=== PATIENT | female | born 1950 | race Caucasian/White ===

== ENCOUNTER 2017-11-07 06:24 | Day surgery (SDC) | payer MEDICARE ==
[2017-11-06 13:46] VITALS: BMI 31.8
[2017-11-07] MEDS ORDERED: Lactated Ringer's 1,000 ML IV ONE ×2 (07:56)
--- NOTE | 2017-11-07 08:03 | CP.SDSHP ---
Same Day Surgery H & P - History Proposed Procedure: COLONSCOPY Pre-Op Diagnosis: SEE NOTES - Previous Medical/Surgical History Cardiac: Hypertension Pulmonary: Asthma Endocrine/Metabolic: Thyroid Disease, Diabetes, Other Misc: Other - Allergies Allergies: Allergies cefazolin Allergy (Mild, Verified 11/06/17 13:47) ITCHING ibuprofen Allergy (Mild, Verified 11/06/17 13:47) ITCHING pineapple Allergy (Mild, Verified 11/06/17 13:47) URTICARIA zolpidem [From Ambien] Allergy (Verified 11/07/17 07:03) DIZZINESS 'RELAXER MEDS" Allergy (Uncoded 11/07/17 07:03) ITCHING - Physical Exam General Appearance: N Vital Signs: Vital Signs 11/07/17 06:50 Temperature 97.6 F Pulse Rate 80 Respiratory 20 Rate Blood Pressure 131/79 O2 Sat by Pulse 97 Oximetry Mental Status: Alert & Oriented x3 Neuro: WNL Heart: Other Lungs: Other GI: Other - {Optional Preform as Required} Breast: WNL Abdomen: Other Rectal: Other Integument: WNL : WNL Ortho: Other ENT: WNL - Impression Pt. Evaluated Today:Candidate for Anesthesia & Procedure: Yes - Date & Time Time: 08:02 Short Stay Discharge - Short Stay Discharge Admitting Diagnosis/Reason for Visit: RECTAL BLEEDING Disposition: HOME/ ROUTINE
[2017-11-07] MEDS ORDERED: Propofol 10 mg/ml Inj (20 ML) ONE (08:05)
[2017-11-07] MEDS ORDERED: Belladonna-Phenobarbital PO ONE (08:40)
[2017-11-07] MEDS ORDERED: Pantoprazole 40 mg EC Tab PO ONE (08:50)
[2017-11-07 09:26] VITALS: TEMP 97.1; O2SAT 100
[2017-11-07 10:24] VITALS: BP 112/68; PULSE 92; RESP 14
== END 2017-11-07 09:45 | disposition home or self-care (01) ==
LOC: C.ENDO 06:24
PROVIDERS: ATTEND Specialist
DX: K62.5 Hemorrhage of anus and rectum (principal); R19.4 Change in bowel habit; R10.84 Generalized abdominal pain; K64.4 Residual hemorrhoidal skin tags; K64.8 Other hemorrhoids; K58.9 Irritable bowel syndrome, unspecified; E11.9 Type 2 diabetes mellitus without complications; I10 Essential (primary) hypertension; J45.909 Unspecified asthma, uncomplicated
CPT/HCPCS: 45380; 82948; 88305; J2704; J7120

== ENCOUNTER 2018-08-09 16:46 | Inpatient (IN) | payer MEDICARE ==
[2018-08-09 16:46] VITALS: BMI 31.8
[2018-08-09] MEDS ORDERED: Albuterol-Ipratrop 3 mg / 0.5 (3 ml) UD ONE ×2 (17:01→17:46)
[2018-08-09] MEDS ORDERED: Albuterol-Ipratrop 3 mg / 0.5 (3 ml) UD INH STA ×2 (17:02→18:05)
--- NOTE | 2018-08-09 18:10 | C.PDOC ---
History Of Present Illness 68 year old female with PMHx of asthma presents to the ED complaining of shortness of breath for 3 days that got worse today. Pt notes her SOB feels like her previous asthma exacerbations. No previous intubations for asthma per pt. Pt was sent in by PMD for further eval of SOB. Reports she had a fever of 99.3 three days ago. Denies any chest pain, leg edema, chills, sweats, nausea, vomiting, lightheadedness or any other complaints. Chief Complaint (Nursing): Shortness Of Breath History Per: Patient History/Exam Limitations: no limitations Onset/Duration Of Symptoms: Days (3) Current Symptoms Are (Timing): Still Present Associated Symptoms: Fever. denies: Chills, Sweating, Chest Pain, Light- headedness Past Medical History Reviewed: Historical Data, Nursing Documentation, Vital Signs Vital Signs: Last Vital Signs Temp 99 F 08/09/18 16:50 Pulse 112 H 08/09/18 16:50 Resp 24 08/09/18 16:50 BP 117/79 08/09/18 16:50 Pulse Ox 97 08/09/18 16:50 - Medical History PMH: Asthma, Diabetes, Hypercholesterolemia, Hypothyroidism Denies: Chronic Kidney Disease Surgical History: Appendectomy, Cholecystectomy - [facility] Procedures LARYGNOSCOPY AND OTH TRACHEOSCOPY (07/07/13) VENOUS CATHETERIZATION NEC (07/07/13) Family History: States: No Known Family Hx - Social History Hx Tobacco Use: No Hx Alcohol Use: No Hx Substance Use: No - Immunization History Hx Tetanus Toxoid Vaccination: No Hx Influenza Vaccination: Yes (2017) Hx Pneumococcal Vaccination: No Review Of Systems Constitutional: Positive for: Fever. Negative for: Chills, Sweats Eyes: Negative for: Pain ENT: Negative for: Ear Pain, Mouth Swelling Cardiovascular: Negative for: Chest Pain, Light Headedness Respiratory: Positive for: Shortness of Breath Gastrointestinal: Negative for: Nausea, Vomiting, Abdominal Pain, Diarrhea, C onstipation, Melena, Hematochezia Genitourinary: Negative for: Dysuria, Frequency, Hematuria, Pelvic Pain, Rash Musculoskeletal: Negative for: Neck Pain Skin: Negative for: Rash Neurological: Negative for: Weakness, Numbness Physical Exam - Physical Exam Appears: Non-toxic Skin: Warm, Dry Head: Normacephalic Eye(s): bilateral: Normal Inspection, PERRL, EOMI Nose: Normal Oral Mucosa: Moist Neck: Supple Chest: Symmetrical Cardiovascular: Rhythm Regular Respiratory: No Rales, No Rhonchi, Wheezing (b/l) Gastrointestinal/Abdominal: Normal Exam, Soft, No Tenderness Back: Normal Inspection, No CVA Tenderness Extremity: Normal ROM, No Pedal Edema, No Swelling Extremity: Bilateral: Atraumatic, Normal Color And Temperature, Normal ROM Neurological/Psych: Oriented x3, Normal Speech, Normal Cognition ED Course And Treatment - Laboratory Results Result Diagrams: 08/09/18 18:56 08/09/18 18:56 O2 Sat by Pulse Oximetry: 97 (NC) Pulse Ox Interpretation: Normal Critical Care Time - Critical Care Note Total Time (in mins): 30 Documented critical care: time excludes all time spent performing seperately billable procedures. Medical Decision Making Medical Decision Makin68 year old F w/ hx of asthma p/w sob. Multiple admission but no previous admissions for asthma. No fever, chills or night sweats. Dry cough. Sent in by PMD for further evaluation of SOB. Duonebs given, will continue w/ Mg and additional Nebs. Orders: - CXR - Bloodwork - Influenze AB - Nebulizer treatment - Solumedrol 125mg IVP 1918 Pt noted to be speaking in 2 word sentences, with diffuse wheezes and tremulous. She denies any hx of ETOH withdrawal or daily ETOH use. Placed on BIPAP with improvement. ICU consulted appreciate consultation w/ Dr. Reyes (ICU) to see pt [address] Reyes: ?withdrawal per ICU. Reccomending CT PE study, expanded history per ICU: pt has hx of CA, previously on eliquis and opiates. UDS requested by ICU 2317 CT PE negative abg- nonhypercapnic. seen by ICU bedside: likely withdrawal per icu given ABG and clinical hx of CA previously on opiates, no indication for ICU admission at this time Wheezes resolved. lungs CTA b/l. Pt improved in NAD, off bipap, tolerting nebs well with good o2 sat, agreeable to plan. Disposition - Disposition Disposition: HOSPITALIZED Disposition Time: 23:18 Condition: FAIR - Clinical Impression Clinical Impression: Asthma - Scribe Statement The provider has reviewed the documentation as recorded by the Scribjaun Dee All medical record entries made by the Scribe were at my direction and personally dictated by me. I have reviewed the chart and agree that the record accurately reflects my personal performance of the history, physical exam, medical decision making, and the department course for this patient. I have also personally directed, reviewed, and agree with the discharge instructions and disposition.
[2018-08-09] MEDS ORDERED: MethylPREDNISolone 40 mg Vial IVP STA (18:15)
[2018-08-09] MEDS ORDERED: Albuterol 0.083% Inhal Sol (2.5 mg/3 mL) UD INH ONE (18:17)
[2018-08-09] MEDS ORDERED: Albuterol 0.083% Inhal Sol (2.5 mg/3 mL) UD ONE (18:18)
[2018-08-09] MEDS ORDERED: Magnesium Sulfate 1 gm in D5W 1 GM/100 ML BAG IVPB ONE ×2 (18:18→18:29)
[2018-08-09 18:59] LABS: BASO # 0.1 K/uL (0.0-0.2); BASO % 0.7 % (0.0-2.0); EOS # 0.3 K/uL (0.0-0.7); EOS % 2.5 % (0.0-4.0); HEMOGLOBIN 12.2 g/dL (11.0-16.0); LYMPH % 33.6 % (20.0-40.0); MEAN CELL VOLUME 92.2 fL (81.0-99.0); MEAN CORPUSCULAR HEMOGLOBIN 31.2 pg (27.0-31.0); MEAN CORPUSCULAR HGB CONC 33.8 g/dL (33.0-37.0); MEAN PLATELET VOLUME 10.4 fL (7.2-11.7); MONO # 0.8 K/uL (0.0-0.8); MONO % 6.7 % (0.0-10.0); NEUT # 6.7 K/uL (1.8-7.0); NEUT % 56.5 % (50.0-75.0); NRBC % 0.1 % (0.0-2.0); RBC 3.92 Mil/uL (3.80-5.20); RED CELL DISTRIBUTION WIDTH 14.3 % (11.5-14.5); WHITE BLOOD COUNT 11.9 K/uL (4.8-10.8)
[2018-08-09 19:10] LABS: ABG ALLEN TEST POS; ARTERIAL BLOOD GAS HCO3 26.9 mmol/L (21-28); ARTERIAL BLOOD GAS O2 SAT 97.7 % (95-98); ARTERIAL BLOOD GAS PCO2 22 mm/Hg (35-45); ARTERIAL BLOOD GAS PH 7.61 (7.35-7.45); ARTERIAL BLOOD GAS PO2 125 mm/Hg (80-100); ARTERIAL BLOOD GAS TCO2 22.8 mmol/L (22-28)
[2018-08-09 19:11] LABS: BLOOD UREA NITROGEN 16 mg/dL (7-17); CALCIUM 9.8 mg/dl (8.6-10.4); GFR NON-AFRICAN AMERICAN > 60
[2018-08-09 19:12] LABS: ALB/GLOB RATIO 1.1 (1.0-2.1); ALBUMIN 4.7 g/dL (3.5-5.0); ALT/SGPT 35 U/L (9-52); AST/SGOT 52 U/L (14-36)
[2018-08-09] MEDS ORDERED: Lactated Ringer's 1,000 ML IV ONE (19:35)
[2018-08-09 20:15] LABS: BARBITURATES, UR NEGATIVE (NEGATIVE); BENZODIAZEPINES, UR NEGATIVE (NEGATIVE); OPIATES, UR NEGATIVE (NEGATIVE); PHENCYCLIDINE, UR NEGATIVE (NEGATIVE)
[2018-08-09] MEDS: MethylPREDNISolone 40 mg Vial IVP SCH (20:19)
[2018-08-09] MEDS ORDERED: Lactated Ringer's 1,000 ML ONE (20:21)
[2018-08-09] MEDS ORDERED: MethylPREDNISolone 40 mg Vial ONE (20:21)
[2018-08-09] MEDS ORDERED: Azithromycin 500mg/250ML NS 500 MG/250 ML BAG IVPB STA (20:45)
[2018-08-09] MEDS ORDERED: Azithromycin 500mg/250ML NS 500 MG/250 ML BAG IVPB ONE (21:56)
[2018-08-09] MEDS ORDERED: Iohexol 350mg/ml 100 ML ONE (22:27)
[2018-08-10] MEDS ORDERED: Lidocaine 5% Patch TD PRN (00:19)
[2018-08-10] MEDS ORDERED: Dextrose 50% SYRINGE Inj (50 ml) IV PRN (00:26)
[2018-08-10] MEDS ORDERED: Glucagon Recombinant 1 mg Inj IM PRN (00:26)
[2018-08-10] MEDS ORDERED: Insulin Detemir 100 units/ml Vial (Levemir) SC ONE (00:42)
[2018-08-10] MEDS: Insulin Detemir 100 units/ml Vial (Levemir) SC SCH ×2 (00:44→21:30)
[2018-08-10] MEDS: Albuterol-Ipratrop 3 mg / 0.5 (3 ml) UD INH SCH ×4 (01:26→20:21)
[2018-08-10] MEDS ORDERED: Albuterol-Ipratrop 3 mg / 0.5 (3 ml) UD ONE ×3 (01:33→14:57)
[2018-08-10] MEDS: MethylPREDNISolone 40 mg Vial IVP SCH ×3 (04:18→19:32)
[2018-08-10] MEDS ORDERED: MethylPREDNISolone 40 mg Vial ONE (04:18)
[2018-08-10 07:43] LABS: INR 1.2
[2018-08-10] MEDS: (Novolog) Insulin Aspart, Recombinant 100 u/ml 10 ml vial SC SCH ×4 (08:09→21:30)
[2018-08-10] MEDS ORDERED: (Novolog) Insulin Aspart, Recombinant 100 u/ml 10 ml vial ONE ×2 (08:11→12:18)
[2018-08-10] MEDS: Fluticasone-Vilanterol 100/25mcg Diskus INH SCH (09:32)
[2018-08-10] MEDS ORDERED: MAGNESIUM AMINO ACID CHELATE PO SCH (10:00)
[2018-08-10] MEDS ORDERED: Levothyroxine 100 MCG TAB PO SCH (10:00)
[2018-08-10] MEDS ORDERED: CYANOCOBALAMIN 2500 MCG PO SCH (10:00)
[2018-08-10] MEDS ORDERED: FENOFIBRATE 40 MG PO SCH (10:00)
[2018-08-10] MEDS ORDERED: Home Med 1 UNIT (Cholecalciferol (Vitamin D3) [Vitamin D3] 2,000 UNIT) PO SCH (10:00)
[2018-08-10] MEDS ORDERED: ACIDOPH PARACASEI B LACTIS PO SCH (10:00)
[2018-08-10] MEDS ORDERED: [UNRECOGNIZED DRUG - OTHER] PO SCH (10:00)
[2018-08-10] MEDS: Enoxaparin 40 mg Syringe SC SCH (10:03)
[2018-08-10] MEDS: Azithromycin 500 MG in Sodium Chloride 0.9% 250 ML IVPB SCH (10:04)
--- NOTE | 2018-08-10 13:03 | CP.PCM.CON ---
History of Present Illness - History of Present Illness History of Present Illness: I was asked to evaluate patient by Dr Esequiel Reyes Patient seen 08/10/18 1100 Patient is a 68 year old female with HTN hyperchoelsterolemia DM, who presents with dyspnea. The symptoms have been present for the last 3 days. She had associated cough. Given DM there was a concern for a cardiac cause of her symptoms. Review of Systems - Constitutional Constitutional: absent: As Per HPI, Anorexia, Chills, Daytime Sleepiness, Excessive Sweating, Fatigue, Fever, Frequent Falls, Headache, Increased Appetite, Lethargy, Malaise, Night Sweats, Snoring, Sleep Apnea, Weight Gain, Weight Loss, Weakness, Other - EENT Eyes: absent: As Per HPI, Blind Spots, Blurred Vision, Change in Vision, Decreased Night Vision, Diplopia, Discharge, Dry Eye, Exophthalmos, Floaters, Irritation, Itchy Eyes, Loss of Peripheral Vision, Pain, Photophobia, Requires Corrective Lenses, Sees Flashes, Spots in Vision, Tunnel Vision, Other Visual Disturbances, Loss of Vision, Other Ears: absent: As Per HPI, Decreased Hearing, Ear Discharge, Ear Pain, Tinnitus, Abnormal Hearing, Disequilibrium, Dizziness, Other Nose/Mouth/Throat: absent: As Per HPI, Epistaxis, Nasal Congestion, Nasal Discharge, Nasal Obstruction, Nasal Trauma, Nose Pain, Post Nasal Drip, Sinus Pain, Sinus Pressure, Bleeding Gums, Change in Voice, Dental Pain, Dry Mouth, Dysphagia, Halitosis, Hoarsness, Lip Swelling, Mouth Lesions, Mouth Pain, Odynophagia, Sore Throat, Throat Swelling, Tongue Swelling, Facial Pain, Neck Pain, Neck Mass, Other - Cardiovascular Cardiovascular: absent: As Per HPI, Acrocyanosis, Chest Pain, Chest Pain at Rest, Chest Pain with Activity, Claudication, Diaphoresis, Dyspnea, Dyspnea on Exertion, Edema, Irregular Heart Rhythm, Pain Radiating to Arm/Neck/Jaw, Leg Jeramie ma, Leg Ulcers, Lightheadedness, Orthopnea, Palpitations, Paroxysmal Nocturnal Dyspnea, Pedal Edema, Radiating Pain, Rapid Heart Rate, Slow Heart Rate, Syncope, Other - Respiratory Respiratory: Cough, Dyspnea - Gastrointestinal Gastrointestinal: absent: As Per HPI, Abdominal Pain, Belching, Bloating, Change in Bowel Habits, Change in Stool Character, Coffee Ground Emesis, Constipation, Cramping, Diarrhea, Dyspepsia, Dysphagia, Early Satiety, Excessive Flatus, Fecal Incontinence, Heartburn, Hematemesis, Hematochezia, Loose Stools, Melena, Nausea, Odynophagia, Temesmus, Vomiting, Other - Genitourinary Genitourinary: absent: As Per HPI, Change in Urinary Stream, Difficulty Urin ating, Dysuria, Flank Pain, Hematuria, Pyuria, Nocturia, Urinary Incontinence, Urinary Frequency, Urinary Hesitance, Urinary Urgency, Voiding Freq/Small Amts, Freq UTI, Hx Renal/Bladder Calculi, Hx /Renal Surgery, Bladder Distension, Other - Musculoskeletal Musculoskeletal: absent: As Per HPI, Abnormal Gait, Arthralgias, Atrophy, Back Pain, Deformity, Joint Swelling, Limited Range of Motion, Loss of Height, Muscle Cramps, Muscle Weakness, Myalgias, Neck Pain, Numbness, Radiating Pain into Limb, Stiffness, Tingling, Other - Integumentary Integumentary: absent: As Per HPI, Acne, Alopecia, Bleeding Lesions, Change in Hair, Change in Nails, Change in Pigmentation, Changing Lesions, Dry Skin, Erythema, Furuncle, Hirsutism, Lesions, New Lesions, Non-Healing Lesions, Photosensitivity, Pruritus, Rash, Skin Pain, Skin Ulcer, Sores, Striae, Swelling, Unusual Bruising, Wounds, Jaundice, Other - Neurological Neurological: absent: As Per HPI, Abnormal Gait, Abnormal Hearing, Abnormal Movements, Abnormal Speech, Behavioral Changes, Burning Sensations, Confusion, Convulsions, Disequilibrium, Dizziness, Numbness, Focal Weakness, Frequent Falls, Headaches, Lack of Coordination, Loss of Vision, Memory Loss, Paresthesias, Radicular Pain, Restless Legs, Sensory Deficit, Syncope, Tingling, Tremor, Vertigo, Weakness, Other Visual Disturbances, Other - Psychiatric Psychiatric: absent: As Per HPI, Abnormal Sleep Pattern, Anhedonia, Anxiety, A uditory Hallucinations, Behavioral Changes, Change in Appetite, Change in Libido, Confusion, Depression, Difficulty Concentrating, Hallucinations, Homicidal Ideation, Hopelessness, Irritability, Memory Loss, Mood Swings, Panic Attacks, Paranoia, Suicidal Ideation, Visual Hallucinations, Tactile [place] ucinations, Other - Endocrine Endocrine: absent: As Per HPI, Change in Body Appearance, Change in Libido, Cold Intolorance, Deepening of Voice, Excessive Sweating, Fatigue, Flushing, Heat Intolorance, Increase in Ring/Shoe/Hat Size, Palpitations, Polydipsia, Po lyphagia, Polyuria, Other - Hematologic/Lymphatic Hematologic: absent: As Per HPI, Easy Bleeding, Easy Bruising, Lymphadenopathy, Other Past Patient History - Past Medical History & Family History Past Medical History?: Yes - Past Social History Smoking Status: Never Smoked - CARDIAC Hx Hypercholesterolemia: Yes - PULMONARY Hx Asthma: Yes - NEUROLOGICAL Hx Neurological Disorder: No - HEENT Hx HEENT Problems: No - RENAL Hx Chronic Kidney Disease: No - ENDOCRINE/METABOLIC Hx Hypothyroidism: Yes - HEMATOLOGICAL/ONCOLOGICAL Hx Blood Disorders: Yes Hx Cancer: Yes (BREAST, KIDNEY, THYROID) Hx Chemotherapy: Yes Hx Metastesis: Yes - INTEGUMENTARY Hx Dermatological Problems: No - MUSCULOSKELETAL/RHEUMATOLOGICAL Hx Musculoskeletal Disorders: No - GASTROINTESTINAL Hx Gastrointestinal Disorders: Yes Other/Comment: C/O ABDOMINAL PAIN - GENITOURINARY/GYNECOLOGICAL Hx Genitourinary Disorders: No - PSYCHIATRIC Hx Substance Use: No - SURGICAL HISTORY Hx Appendectomy: Yes Hx Cholecystectomy: Yes - ANESTHESIA Hx Anesthesia: Yes Hx Anesthesia Reactions: No Hx Malignant Hyperthermia: No Meds Allergies/Adverse Reactions: Allergies Allergy/AdvReac Type Severity Reaction Status Date / Time cefazolin Allergy Mild ITCHING Verified 08/09/18 16:54 ibuprofen Allergy Mild ITCHING Verified 08/09/18 16:54 pineapple Allergy Mild URTICARIA Verified 08/09/18 16:54 zolpidem [From Ambien] Allergy DIZZINESS Verified 08/09/18 16:54 'RELAXER MEDS" Allergy ITCHING Uncoded 08/09/18 16:54 - Medications Medications: Current Medications Albuterol/Ipratropium (Duoneb 3 Mg/0.5 Mg (3 Ml) Ud) 3 ml INH RQ6 [facility] Last Admin: 08/10/18 09:46 Dose: 3 ml Alprazolam (Xanax) 1 mg PO DAILY PRN PRN Reason: Anxiety Aspirin (Ecotrin) 81 mg PO DAILY [facility] Last Admin: 08/10/18 10:03 Dose: 81 mg Dextrose (Dextrose 50% Inj) 0 ml IV STAT PRN; Protocol PRN Reason: Hypoglycemia Protocol Dextrose (Glutose 15) 0 gm PO ONCE PRN; Protocol PRN Reason: Hypoglycemia Protocol Enoxaparin Sodium (Lovenox) 40 mg SC DAILY [facility] Last Admin: 08/10/18 10:03 Dose: 40 mg Fluticasone/Vilanterol (Breo Ellipta 100-25 Mcg Inh) 1 puff INH RQD [facility] Last Admin: 08/10/18 09:32 Dose: 1 puff Gabapentin (Neurontin) 800 mg PO TID PRN PRN Reason: to give with dilaudid Last Admin: 08/10/18 05:07 Dose: 800 mg Glucagon (Glucagen Diagnostic Kit) 0 mg IM STAT PRN; Protocol PRN Reason: Hypoglycemia Protocol Home Med (Cholecalciferol (Vitamin D3) [Vitamin D3]) 2,000 unit PO DAILY [facility] Home Med (Cyanocobalamin (Vitamin B-12) [Vitamin B12]) 2,500 mcg PO DAILY [facility] Home Med (Fenofibrate [Fenofibrate]) 40 mg PO DAILY [facility] Home Med (L.Acidoph,Paracasei, B.Lactis [Probiotic]) 1 each PO DAILY [facility] Home Med (Lobaza) 1 gr PO DAILY [facility] Home Med (Magnesium Amino Acid Chelate [Magnesium]) 27 mg PO DAILY [facility] Hydromorphone HCl (Dilaudid) 2 mg PO Q8 PRN PRN Reason: pain Last Admin: 08/10/18 05:07 Dose: 2 mg Azithromycin 500 mg/ Sodium (Chloride) 250 mls @ 250 mls/hr IVPB DAILY [facility]; Protocol Last Admin: 08/10/18 10:04 Dose: 250 mls/hr Dextrose (Dextrose 5% In Water 1000 Ml) 1,000 mls @ 0 mls/hr IV .Q0M PRN; Protocol PRN Reason: Hypoglycemia Protocol Insulin Aspart (Novolog) 0 unit SC ACHS [facility]; Protocol Last Admin: 08/10/18 12:11 Dose: 5 units Insulin Detemir (Levemir) 20 unit SC HS [facility] Last Admin: 08/10/18 00:44 Dose: 20 units Levothyroxine Sodium (Synthroid) 100 mcg PO DAILY [facility] Last Admin: 08/10/18 10:04 Dose: 100 mcg Lidocaine (Lidoderm) 1 ea TD DAILY PRN PRN Reason: pain Methylprednisolone (Solu-Medrol) 40 mg IVP Q8H [facility] Stop: 08/12/18 19:31 Last Admin: 08/10/18 12:18 Dose: 40 mg Montelukast Sodium (Singulair) 10 mg PO HS [facility] Last Admin: 08/09/18 21:54 Dose: 10 mg Pantoprazole Sodium (Protonix Ec Tab) 40 mg PO DAILY [facility] Repaglinide (Prandin) 1 mg PO TID [facility] Last Admin: 08/10/18 10:04 Dose: 1 mg Rosuvastatin Calcium (Crestor) 20 mg PO HS [facility] Sucralfate (Carafate Tab) 1 gm PO QID [facility] Last Admin: 08/10/18 10:03 Dose: 1 gm Physical Exam - Constitutional Appears: Non-toxic - Head Exam Head Exam: NORMAL INSPECTION - Eye Exam Eye Exam: Normal appearance - ENT Exam ENT Exam: Mucous Membranes Moist - Neck Exam Neck exam: Positive for: Full Rom - Respiratory Exam Respiratory Exam: NORMAL BREATHING PATTERN - Cardiovascular Exam Cardiovascular Exam: REGULAR RHYTHM - GI/Abdominal Exam GI & Abdominal Exam: Normal Bowel Sounds - Rectal Exam Rectal Exam: Deferred - Extremities Exam Extremities exam: Positive for: pedal edema - Back Exam Back exam: NORMAL INSPECTION - Neurological Exam Neurological exam: Alert, Oriented x3 - Psychiatric Exam Psychiatric exam: Normal Affect - Skin Skin Exam: Normal Color Results - Vital Signs Recent Vital Signs: Last Vital Signs Temp 98.3 F 08/10/18 08:58 Pulse 97 H 08/10/18 08:58 Resp 24 08/10/18 08:58 BP 123/62 08/10/18 08:58 Pulse Ox 96 08/10/18 08:58 - Labs Result Diagrams: 08/09/18 18:56 08/09/18 18:56 Labs: Laboratory Results - last 24 hr 08/09/18 08/09/18 08/09/18 18:18 18:56 18:56 WBC 11.9 H RBC 3.92 Hgb 12.2 Hct 36.2 MCV 92.2 MCH 31.2 H MCHC 33.8 RDW 14.3 Plt Count 227 MPV 10.4 Neut % (Auto) 56.5 Lymph % (Auto) 33.6 [place] % (Auto) 6.7 Eos % (Auto) 2.5 Baso % (Auto) 0.7 Neut # (Auto) 6.7 Lymph # (Auto) 4.0 [place] # (Auto) 0.8 Eos # (Auto) 0.3 Baso # (Auto) 0.1 PT INR APTT Puncture Site pCO2 pO2 HCO3 ABG pH ABG Total CO2 ABG O2 Saturation ABG Base Excess Buster Test ABG Potassium A-a O2 Difference Respiratory Index Glucose Lactate FiO2 Inspiratory BiPAP Expiratory BiPAP Crit Value Called To Crit Value Called By Crit Value Read Back Blood Gas Notified Time Sodium 140 Potassium 4.3 Chloride 99 Carbon Dioxide 22 Anion Gap 23 H BUN 16 Creatinine 0.7 Est GFR ( Amer) > 60 Est GFR (Non-Af Amer) > 60 POC Glucose (mg/dL) Random Glucose 155 H Calcium 9.8 Total Bilirubin 0.8 AST 52 H ALT 35 Alkaline Phosphatase 77 Troponin I NT-Pro-B Natriuret Pep Total Protein 8.9 H Albumin 4.7 Globulin 4.2 H Albumin/Globulin Ratio 1.1 Arterial Blood Potassium Urine Opiates Screen Urine Methadone Screen Ur Barbiturates Screen Ur Phencyclidine Scrn Ur Amphetamines Screen U Benzodiazepines Scrn U Oth Cocaine Metabols U Cannabinoids Screen Influenza Typ A,B (EIA) Negative for flu a/b 08/09/18 08/09/18 08/09/18 19:00 19:34 19:38 WBC RBC Hgb Hct MCV MCH MCHC RDW Plt Count MPV Neut % (Auto) Lymph % (Auto) [place] % (Auto) Eos % (Auto) Baso % (Auto) Neut # (Auto) Lymph # (Auto) [place] # (Auto) Eos # (Auto) Baso # (Auto) PT INR APTT Puncture Site Rra pCO2 22 L pO2 125 H HCO3 26.9 ABG pH 7.61 H* ABG Total CO2 22.8 ABG O2 Saturation 97.7 ABG Base Excess 2.4 Buster Test Pos ABG Potassium 2.8 L A-a O2 Difference 61.0 Respiratory Index 0.5 Glucose 217 H Lactate 3.6 H FiO2 30.0 Inspiratory BiPAP 10 Expiratory BiPAP 5 Crit Value Called To Dr armstrong Crit Value Called By [facility] Crit Value Read Back Y Blood Gas Notified Time 1908 Sodium 143.0 Potassium Chloride 107.0 Carbon Dioxide Anion Gap BUN Creatinine Est GFR ( Amer) Est GFR (Non-Af Amer) POC Glucose (mg/dL) Random Glucose Calcium Total Bilirubin AST ALT Alkaline Phosphatase Troponin I < 0.0120 NT-Pro-B Natriuret Pep 43.0 Total Protein Albumin Globulin Albumin/Globulin Ratio Arterial Blood Potassium 2.8 L Urine Opiates Screen Negative Urine Methadone Screen Negative Ur Barbiturates Screen Negative Ur Phencyclidine Scrn Negative Ur Amphetamines Screen Negative U Benzodiazepines Scrn Negative U Oth Cocaine Metabols Negative U Cannabinoids Screen Negative Influenza Typ A,B (EIA) 08/09/18 08/10/18 23:11 07:26 WBC RBC Hgb Hct MCV MCH MCHC RDW Plt Count MPV Neut % (Auto) Lymph % (Auto) [place] % (Auto) Eos % (Auto) Baso % (Auto) Neut # (Auto) Lymph # (Auto) [place] # (Auto) Eos # (Auto) Baso # (Auto) PT 13.0 H INR 1.2 APTT 26 Puncture Site pCO2 pO2 HCO3 ABG pH ABG Total CO2 ABG O2 Saturation ABG Base Excess Buster Test ABG Potassium A-a O2 Difference Respiratory Index Glucose Lactate FiO2 Inspiratory BiPAP Expiratory BiPAP Crit Value Called To Crit Value Called By Crit Value Read Back Blood Gas Notified Time Sodium Potassium Chloride Carbon Dioxide Anion Gap BUN Creatinine Est GFR ( Amer) Est GFR (Non-Af Amer) POC Glucose (mg/dL) 361 H Random Glucose Calcium Total Bilirubin AST ALT Alkaline Phosphatase Troponin I NT-Pro-B Natriuret Pep Total Protein Albumin Globulin Albumin/Globulin Ratio Arterial Blood Potassium Urine Opiates Screen Urine Methadone Screen Ur Barbiturates Screen Ur Phencyclidine Scrn Ur Amphetamines Screen U Benzodiazepines Scrn U Oth Cocaine Metabols U Cannabinoids Screen Influenza Typ A,B (EIA) - EKG Data EKG Interpreted by: Myself EKG shows normal: Sinus rhythm Assessment & Plan (1) Dyspnea Assessment and Plan: symptoms suggestive of asthma. however patient has DM which is risk factor for CAD. medical therapy. will check echocardiogram Status: Acute (2) Diabetes Assessment and Plan: blood sugar control Status: Acute (3) HTN (hypertension) Assessment and Plan: blood pressure is controlled. Status: Acute
--- NOTE | 2018-08-10 14:24 | CT ---
Date of service: 08/09/2018 PROCEDURE: CT Chest with contrast (Pulmonary Angiogram) HISTORY: hx of ca p/w sob COMPARISON: 07/07/2013 TECHNIQUE: Axial computed tomography images were obtained of the chest in the pulmonary arterial phase of enhancement. Coronal and sagittal reformatted images were created and reviewed. Intravenous contrast dose: 100 mL Omnipaque 350 Radiation dose: Total exam DLP = 453.9 mGy-cm. This CT exam was performed using one or more of the following dose reduction techniques: Automated exposure control, adjustment of the mA and/or kV according to patient size, and/or use of iterative reconstruction technique. FINDINGS: PULMONARY ARTERIES: Evaluation technically limited due to timing of scan relative to contrast bolus. Suboptimal evaluation of subsegmental pulmonary artery branches. No evidence of pulmonary embolism in the main, lobar and segmental branches. AORTA: No acute findings. No thoracic aortic aneurysm. No aortic atherosclerotic calcification or mural plaque present. LUNGS: Bilateral lower lobe linear scar/atelectasis. No pulmonary infiltrate. PLEURAL SPACES: Unremarkable. No effusion or pneumothorax. HEART: Unremarkable. No cardiomegaly. No significant pericardial effusion. LYMPH NODES: No lymphadenopathy. BONES, CHEST WALL: Right breast augmentation prosthesis. Left mastectomy. Surgical clips in left axilla. No osseous fracture. OTHER FINDINGS: Unremarkable. IMPRESSION: No evidence of pulmonary embolism. Limited evaluation as above. No pulmonary infiltrate. Left mastectomy. Right breast augmentation prosthesis. The preliminary findings for this examination were reported by [facility] at 11:05 p.m. on 08/09/2018.. There is concurrence of this report with the preliminary findings.
[2018-08-10] MEDS ORDERED: Pantoprazole 40 mg EC Tab PO ONE (14:57)
[2018-08-10] MEDS: Pantoprazole 40 mg EC Tab PO SCH (15:02)
--- NOTE | 2018-08-10 16:15 | RAD ---
Date of service: 08/09/2018 HISTORY: SOB COMPARISON: Comparison made with chest radiograph 09/24/2013. This study was also read in conjunction with subsequent CTA of the chest 08/09/2018 at 22:27 hours. FINDINGS: LUNGS: Mild right basilar atelectasis. Note however that a portion of the right lateral lower hemithorax is obscured by in situ right-sided breast prosthesis.. Minimal left basilar atelectasis or scarring. PLEURA: No significant pleural effusion identified, no pneumothorax apparent. CARDIOVASCULAR: No obvious aortic atherosclerotic calcification present. Heart is mildly enlarged.. No pulmonary vascular congestion. OSSEOUS STRUCTURES: No significant abnormalities. VISUALIZED UPPER ABDOMEN: Normal. OTHER FINDINGS: Metallic clips left axilla and left mastectomy changes again noted. IMPRESSION: Mild right basilar atelectasis. Note however that a portion of the right lateral lower hemithorax is obscured by in situ right-sided breast prosthesis.. Minimal left basilar atelectasis or scarring. See above discussion for additional details and findings.
--- NOTE | 2018-08-10 17:41 | CP.PCM.HP ---
Present on Admission - Present on Admission Any Indicators Present on Admission: No Past Patient History - Past Medical History & Family History Past Medical History?: Yes - Past Social History Smoking Status: Former Smoker - CARDIAC Hx Cardiac Disorders: Yes Hx Hypercholesterolemia: Yes - PULMONARY Hx Respiratory Disorders: Yes Hx Asthma: Yes - NEUROLOGICAL Hx Neurological Disorder: No - HEENT Hx HEENT Problems: No - RENAL Hx Chronic Kidney Disease: No - ENDOCRINE/METABOLIC Hx Endocrine Disorders: Yes Hx Hypothyroidism: Yes - HEMATOLOGICAL/ONCOLOGICAL Hx Blood Disorders: Yes Hx Cancer: Yes (BREAST, KIDNEY, THYROID) Hx Chemotherapy: Yes Hx Metastesis: Yes - INTEGUMENTARY Hx Dermatological Problems: No - MUSCULOSKELETAL/RHEUMATOLOGICAL Hx Musculoskeletal Disorders: No Hx Falls: No - GASTROINTESTINAL Hx Gastrointestinal Disorders: Yes Other/Comment: C/O ABDOMINAL PAIN - GENITOURINARY/GYNECOLOGICAL Hx Genitourinary Disorders: No - PSYCHIATRIC Hx Bipolar Disorder: No Hx Substance Use: No - SURGICAL HISTORY Hx Surgeries: Yes Hx Appendectomy: Yes Hx Cholecystectomy: Yes - ANESTHESIA Hx Anesthesia: Yes Hx Anesthesia Reactions: No Hx Malignant Hyperthermia: No Meds Allergies/Adverse Reactions: Allergies Allergy/AdvReac Type Severity Reaction Status Date / Time cefazolin Allergy Mild ITCHING Verified 08/09/18 16:54 ibuprofen Allergy Mild ITCHING Verified 08/09/18 16:54 pineapple Allergy Mild URTICARIA Verified 08/09/18 16:54 zolpidem [From Ambien] Allergy DIZZINESS Verified 08/09/18 16:54 'RELAXER MEDS" Allergy ITCHING Uncoded 08/09/18 16:54 Physical Exam - Constitutional Appears: Well - Head Exam Head Exam: ATRAUMATIC, NORMAL INSPECTION, NORMOCEPHALIC - Eye Exam Eye Exam: EOMI, Normal appearance, PERRL Pupil Exam: NORMAL ACCOMODATION, PERRL - ENT Exam ENT Exam: Mucous Membranes Moist, Normal Exam - Neck Exam Neck exam: Positive for: Normal Inspection - Respiratory Exam Respiratory Exam: Decreased Breath Sounds - Cardiovascular Exam Cardiovascular Exam: REGULAR RHYTHM, +S1, +S2 - GI/Abdominal Exam GI & Abdominal Exam: Diminished Bowel Sounds, Soft - Rectal Exam Rectal Exam: Deferred Results - Vital Signs Recent Vital Signs: Last Vital Signs Temp 98.2 F 08/10/18 17:23 Pulse 90 08/10/18 17:23 Resp 20 08/10/18 17:23 BP 120/78 08/10/18 17:23 Pulse Ox 96 08/10/18 17:23 - Labs Result Diagrams: 08/14/18 06:44 08/14/18 06:44 Labs: Laboratory Results - last 24 hr 08/09/18 08/09/18 08/09/18 18:18 18:56 18:56 WBC 11.9 H RBC 3.92 Hgb 12.2 Hct 36.2 MCV 92.2 MCH 31.2 H MCHC 33.8 RDW 14.3 Plt Count 227 MPV 10.4 Neut % (Auto) 56.5 Lymph % (Auto) 33.6 [place] % (Auto) 6.7 Eos % (Auto) 2.5 Baso % (Auto) 0.7 Neut # (Auto) 6.7 Lymph # (Auto) 4.0 [place] # (Auto) 0.8 Eos # (Auto) 0.3 Baso # (Auto) 0.1 PT INR APTT Puncture Site pCO2 pO2 HCO3 ABG pH ABG Total CO2 ABG O2 Saturation ABG Base Excess Buster Test ABG Potassium A-a O2 Difference Respiratory Index Glucose Lactate FiO2 Inspiratory BiPAP Expiratory BiPAP Crit Value Called To Crit Value Called By Crit Value Read Back Blood Gas Notified Time Sodium 140 Potassium 4.3 Chloride 99 Carbon Dioxide 22 Anion Gap 23 H BUN 16 Creatinine 0.7 Est GFR ( Amer) > 60 Est GFR (Non-Af Amer) > 60 POC Glucose (mg/dL) Random Glucose 155 H Calcium 9.8 Total Bilirubin 0.8 AST 52 H ALT 35 Alkaline Phosphatase 77 Troponin I NT-Pro-B Natriuret Pep Total Protein 8.9 H Albumin 4.7 Globulin 4.2 H Albumin/Globulin Ratio 1.1 Procalcitonin Arterial Blood Potassium Urine Opiates Screen Urine Methadone Screen Ur Barbiturates Screen Ur Phencyclidine Scrn Ur Amphetamines Screen U Benzodiazepines Scrn U Oth Cocaine Metabols U Cannabinoids Screen Influenza Typ A,B (EIA) Negative for flu a/b 08/09/18 08/09/18 08/09/18 19:00 19:34 19:38 WBC RBC Hgb Hct MCV MCH MCHC RDW Plt Count MPV Neut % (Auto) Lymph % (Auto) [place] % (Auto) Eos % (Auto) Baso % (Auto) Neut # (Auto) Lymph # (Auto) [place] # (Auto) Eos # (Auto) Baso # (Auto) PT INR APTT Puncture Site Rra pCO2 22 L pO2 125 H HCO3 26.9 ABG pH 7.61 H* ABG Total CO2 22.8 ABG O2 Saturation 97.7 ABG Base Excess 2.4 Buster Test Pos ABG Potassium 2.8 L A-a O2 Difference 61.0 Respiratory Index 0.5 Glucose 217 H Lactate 3.6 H FiO2 30.0 Inspiratory BiPAP 10 Expiratory BiPAP 5 Crit Value Called To Dr armstrong Crit Value Called By [facility] Crit Value Read Back Y Blood Gas Notified Time 1908 Sodium 143.0 Potassium Chloride 107.0 Carbon Dioxide Anion Gap BUN Creatinine Est GFR ( Amer) Est GFR (Non-Af Amer) POC Glucose (mg/dL) Random Glucose Calcium Total Bilirubin AST ALT Alkaline Phosphatase Troponin I < 0.0120 NT-Pro-B Natriuret Pep 43.0 Total Protein Albumin Globulin Albumin/Globulin Ratio Procalcitonin Arterial Blood Potassium 2.8 L Urine Opiates Screen Negative Urine Methadone Screen Negative Ur Barbiturates Screen Negative Ur Phencyclidine Scrn Negative Ur Amphetamines Screen Negative U Benzodiazepines Scrn Negative U Oth Cocaine Metabols Negative U Cannabinoids Screen Negative Influenza Typ A,B (EIA) 08/09/18 08/09/18 08/10/18 22:12 23:11 07:26 WBC RBC Hgb Hct MCV MCH MCHC RDW Plt Count MPV Neut % (Auto) Lymph % (Auto) [place] % (Auto) Eos % (Auto) Baso % (Auto) Neut # (Auto) Lymph # (Auto) [place] # (Auto) Eos # (Auto) Baso # (Auto) PT 13.0 H INR 1.2 APTT 26 Puncture Site pCO2 pO2 HCO3 ABG pH ABG Total CO2 ABG O2 Saturation ABG Base Excess Buster Test ABG Potassium A-a O2 Difference Respiratory Index Glucose Lactate FiO2 Inspiratory BiPAP Expiratory BiPAP Crit Value Called To Crit Value Called By Crit Value Read Back Blood Gas Notified Time Sodium Potassium Chloride Carbon Dioxide Anion Gap BUN Creatinine Est GFR ( Amer) Est GFR (Non-Af Amer) POC Glucose (mg/dL) 361 H Random Glucose Calcium Total Bilirubin AST ALT Alkaline Phosphatase Troponin I NT-Pro-B Natriuret Pep Total Protein Albumin Globulin Albumin/Globulin Ratio Procalcitonin < 0.05 L Arterial Blood Potassium Urine Opiates Screen Urine Methadone Screen Ur Barbiturates Screen Ur Phencyclidine Scrn Ur Amphetamines Screen U Benzodiazepines Scrn U Oth Cocaine Metabols U Cannabinoids Screen Influenza Typ A,B (EIA) Assessment & Plan - Assessment and Plan (Free Text) Plan: Still having a lot of cough patient is on IV Avelox IV steroid DuoNeb Singulair Alprazolam Pain medication All medication as advised CBC CMP Follow-up with PMD
--- NOTE | 2018-08-10 19:05 | CP.PCM.CON ---
History of Present Illness - History of Present Illness History of Present Illness: CHART REVIEWED. PT SEEN AND EXAMINED. 68 YO HISP FEMALE WITH A HX COPD, HTN, DM, HYPERLIPIDEMIA, HYPOTH, +BREAST CA S/P CHEMO AND RT ?METS TO THYROID AND KIDNEY, ADM 08/09/18 WITH INCREASED MOD- SEVERE SOB AT REST X 3 DAYS, SEEN AT [facility] LAST WK AND RELEASED ON AB, COMPLETED COURSE, NO BETTER., NO RELIEF WITH HOME NEB 4X/DAY. +COUGH NO SPUTUM., NO HOME O2. IN ER, PLACED ON BIPAP SUPPORT. Review of Systems - Review of Systems All systems: reviewed and no additional remarkable complaints except - Constitutional Constitutional: Weakness. absent: Chills, Night Sweats - EENT Eyes: absent: Change in Vision Nose/Mouth/Throat: absent: Nasal Congestion - Respiratory Respiratory: Cough, Dyspnea, Dyspnea on Exertion, Wheezing. absent: Excessive Mucous Production - Gastrointestinal Gastrointestinal: absent: Nausea, Vomiting - Genitourinary Genitourinary: absent: Dysuria - Musculoskeletal Musculoskeletal: absent: Joint Swelling, Tingling - Integumentary Integumentary: absent: Lesions - Neurological Neurological: absent: Abnormal Hearing - Psychiatric Psychiatric: absent: Confusion - Endocrine Endocrine: absent: Change in Body Appearance - Hematologic/Lymphatic Hematologic: absent: Easy Bleeding Past Patient History - Past Medical History & Family History Past Medical History?: Yes Past Family History: Reviewed and not pertinent - Past Social History Smoking Status: Former Smoker Alcohol: None - CARDIAC Hx Cardiac Disorders: Yes Hx Hypercholesterolemia: Yes - PULMONARY Hx Respiratory Disorders: Yes Hx Asthma: Yes - NEUROLOGICAL Hx Neurological Disorder: No - HEENT Hx HEENT Problems: No - RENAL Hx Chronic Kidney Disease: No - ENDOCRINE/METABOLIC Hx Endocrine Disorders: Yes Hx Diabetes Mellitus Type 2: Yes Hx Hypothyroidism: Yes - HEMATOLOGICAL/ONCOLOGICAL Hx Blood Disorders: Yes Hx Cancer: Yes (BREAST, KIDNEY, THYROID) Hx Chemotherapy: Yes Hx Metastesis: Yes - INTEGUMENTARY Hx Dermatological Problems: No - MUSCULOSKELETAL/RHEUMATOLOGICAL Hx Musculoskeletal Disorders: No Hx Falls: No - GASTROINTESTINAL Hx Gastrointestinal Disorders: Yes Hx Gall Bladder Disease: Yes Other/Comment: C/O ABDOMINAL PAIN - GENITOURINARY/GYNECOLOGICAL Hx Genitourinary Disorders: No - PSYCHIATRIC Hx Bipolar Disorder: No Hx Substance Use: No - SURGICAL HISTORY Hx Surgeries: Yes Hx Appendectomy: Yes Hx Cholecystectomy: Yes Hx Hysterectomy: Yes Hx Mastectomy: Yes - ANESTHESIA Hx Anesthesia: Yes Hx Anesthesia Reactions: No Hx Malignant Hyperthermia: No Meds Allergies/Adverse Reactions: Allergies Allergy/AdvReac Type Severity Reaction Status Date / Time cefazolin Allergy Mild ITCHING Verified 08/09/18 16:54 ibuprofen Allergy Mild ITCHING Verified 08/09/18 16:54 pineapple Allergy Mild URTICARIA Verified 08/09/18 16:54 zolpidem [From Ambien] Allergy DIZZINESS Verified 08/09/18 16:54 'RELAXER MEDS" Allergy ITCHING Uncoded 08/09/18 16:54 - Medications Medications: Current Medications Albuterol/Ipratropium (Duoneb 3 Mg/0.5 Mg (3 Ml) Ud) 3 ml INH RQ6 [facility] Last Admin: 08/10/18 15:03 Dose: 3 ml Alprazolam (Xanax) 1 mg PO DAILY PRN PRN Reason: Anxiety Aspirin (Ecotrin) 81 mg PO DAILY [facility] Last Admin: 08/10/18 10:03 Dose: 81 mg Cyanocobalamin (Vitamin B12 1000 Mcg Tab) 2,000 mcg PO DAILY [facility] Dextrose (Dextrose 50% Inj) 0 ml IV STAT PRN; Protocol PRN Reason: Hypoglycemia Protocol Dextrose (Glutose 15) 0 gm PO ONCE PRN; Protocol PRN Reason: Hypoglycemia Protocol Enoxaparin Sodium (Lovenox) 40 mg SC DAILY [facility] Last Admin: 08/10/18 10:03 Dose: 40 mg Ergocalciferol (Drisdol 50,000 Intl Units Cap) 1 cap PO QWK [facility] Fenofibrate (Tricor) 48 mg PO DAILY [facility] Fluticasone/Vilanterol (Breo Ellipta 100-25 Mcg Inh) 1 puff INH RQD [facility] Last Admin: 08/10/18 09:32 Dose: 1 puff Gabapentin (Neurontin) 800 mg PO TID PRN PRN Reason: to give with dilaudid Last Admin: 08/10/18 13:35 Dose: 800 mg Glucagon (Glucagen Diagnostic Kit) 0 mg IM STAT PRN; Protocol PRN Reason: Hypoglycemia Protocol Hydromorphone HCl (Dilaudid) 2 mg PO Q8 PRN PRN Reason: pain Last Admin: 08/10/18 13:35 Dose: 2 mg Azithromycin 500 mg/ Sodium (Chloride) 250 mls @ 250 mls/hr IVPB DAILY [facility]; Protocol Last Admin: 08/10/18 10:04 Dose: 250 mls/hr Dextrose (Dextrose 5% In Water 1000 Ml) 1,000 mls @ 0 mls/hr IV .Q0M PRN; Protocol PRN Reason: Hypoglycemia Protocol Insulin Aspart (Novolog) 0 unit SC ACHS [facility]; Protocol Last Admin: 08/10/18 17:56 Dose: 5 units Insulin Detemir (Levemir) 20 unit SC [facility] Last Admin: 08/10/18 00:44 Dose: 20 units Lactobacillus Acidophilus (Bacid Acidophilus) 1 cap PO BID [facility] Levothyroxine Sodium (Synthroid) 100 mcg PO DAILY@0630 [facility] Lidocaine (Lidoderm) 1 ea TD DAILY PRN PRN Reason: pain Methylprednisolone (Solu-Medrol) 40 mg IVP Q8H [facility] Stop: 08/12/18 19:31 Last Admin: 08/10/18 12:18 Dose: 40 mg Montelukast Sodium (Singulair) 10 mg PO [facility] Last Admin: 08/09/18 21:54 Dose: 10 mg [id number] Ethyl Esters (Lovaza) 1 gm PO DAILY [facility] Pantoprazole Sodium (Protonix Ec Tab) 40 mg PO DAILY [facility] Last Admin: 08/10/18 15:02 Dose: 40 mg Pneumococcal Polyvalent Vaccine (Pneumovax 23 Vaccine) 0.5 ml IM .ONCE ONE Stop: 08/12/18 12:01 Repaglinide (Prandin) 1 mg PO TID [facility] Last Admin: 08/10/18 18:10 Dose: 1 mg Rosuvastatin Calcium (Crestor) 20 mg PO [facility] Sucralfate (Carafate Tab) 1 gm PO QID [facility] Last Admin: 08/10/18 17:56 Dose: 1 gm Physical Exam - Constitutional Appears: No Acute Distress - Head Exam Head Exam: ATRAUMATIC, NORMOCEPHALIC - Eye Exam Eye Exam: EOMI, Normal appearance - ENT Exam ENT Exam: Mucous Membranes Moist - Neck Exam Neck exam: Positive for: Normal Inspection - Respiratory Exam Respiratory Exam: Decreased Breath Sounds. absent: Accessory Muscle Use, Wheezes - Cardiovascular Exam Cardiovascular Exam: RRR, +S1, +S2 - GI/Abdominal Exam GI & Abdominal Exam: Soft. absent: Tenderness - Rectal Exam Rectal Exam: Deferred - Extremities Exam Extremities exam: Negative for: calf tenderness, pedal edema - Back Exam Back exam: absent: CVA tenderness (L), CVA tenderness (R) - Neurological Exam Neurological exam: Alert, CN II-XII Intact, Oriented x3 - Psychiatric Exam Psychiatric exam: Normal Mood Results - Vital Signs Recent Vital Signs: Last Vital Signs Temp 98.2 F 08/10/18 17:23 Pulse 90 08/10/18 17:23 Resp 20 08/10/18 17:23 BP 120/78 08/10/18 17:23 Pulse Ox 96 08/10/18 17:23 - Labs Result Diagrams: 08/09/18 18:56 08/09/18 18:56 Labs: Laboratory Results - last 24 hr 08/09/18 08/09/18 08/09/18 18:18 18:56 19:00 PT INR APTT Puncture Site Rra pCO2 22 L pO2 125 H HCO3 26.9 ABG pH 7.61 H* ABG Total CO2 22.8 ABG O2 Saturation 97.7 ABG Base Excess 2.4 Buster Test Pos ABG Potassium 2.8 L A-a O2 Difference 61.0 Respiratory Index 0.5 Glucose 217 H Lactate 3.6 H FiO2 30.0 Inspiratory BiPAP 10 Expiratory BiPAP 5 Crit Value Called To Dr armstrong Crit Value Called By [facility] Crit Value Read Back Y Blood Gas Notified Time 1908 Sodium 140 143.0 Potassium 4.3 Chloride 99 107.0 Carbon Dioxide 22 Anion Gap 23 H BUN 16 Creatinine 0.7 Est GFR ( Amer) > 60 Est GFR (Non-Af Amer) > 60 POC Glucose (mg/dL) Random Glucose 155 H Calcium 9.8 Total Bilirubin 0.8 AST 52 H ALT 35 Alkaline Phosphatase 77 Troponin I NT-Pro-B Natriuret Pep Total Protein 8.9 H Albumin 4.7 Globulin 4.2 H Albumin/Globulin Ratio 1.1 Procalcitonin Arterial Blood Potassium 2.8 L Urine Opiates Screen Urine Methadone Screen Ur Barbiturates Screen Ur Phencyclidine Scrn Ur Amphetamines Screen U Benzodiazepines Scrn U Oth Cocaine Metabols U Cannabinoids Screen Influenza Typ A,B (EIA) Negative for flu a/b 08/09/18 08/09/18 08/09/18 19:34 19:38 22:12 PT INR APTT Puncture Site pCO2 pO2 HCO3 ABG pH ABG Total CO2 ABG O2 Saturation ABG Base Excess Buster Test ABG Potassium A-a O2 Difference Respiratory Index Glucose Lactate FiO2 Inspiratory BiPAP Expiratory BiPAP Crit Value Called To Crit Value Called By Crit Value Read Back Blood Gas Notified Time Sodium Potassium Chloride Carbon Dioxide Anion Gap BUN Creatinine Est GFR ( Amer) Est GFR (Non-Af Amer) POC Glucose (mg/dL) Random Glucose Calcium Total Bilirubin AST ALT Alkaline Phosphatase Troponin I < 0.0120 NT-Pro-B Natriuret Pep 43.0 Total Protein Albumin Globulin Albumin/Globulin Ratio Procalcitonin < 0.05 L Arterial Blood Potassium Urine Opiates Screen Negative Urine Methadone Screen Negative Ur Barbiturates Screen Negative Ur Phencyclidine Scrn Negative Ur Amphetamines Screen Negative U Benzodiazepines Scrn Negative U Oth Cocaine Metabols Negative U Cannabinoids Screen Negative Influenza Typ A,B (EIA) 08/09/18 08/10/18 23:11 07:26 PT 13.0 H INR 1.2 APTT 26 Puncture Site pCO2 pO2 HCO3 ABG pH ABG Total CO2 ABG O2 Saturation ABG Base Excess Buster Test ABG Potassium A-a O2 Difference Respiratory Index Glucose Lactate FiO2 Inspiratory BiPAP Expiratory BiPAP Crit Value Called To Crit Value Called By Crit Value Read Back Blood Gas Notified Time Sodium Potassium Chloride Carbon Dioxide Anion Gap BUN Creatinine Est GFR ( Amer) Est GFR (Non-Af Amer) POC Glucose (mg/dL) 361 H Random Glucose Calcium Total Bilirubin AST ALT Alkaline Phosphatase Troponin I NT-Pro-B Natriuret Pep Total Protein Albumin Globulin Albumin/Globulin Ratio Procalcitonin Arterial Blood Potassium Urine Opiates Screen Urine Methadone Screen Ur Barbiturates Screen Ur Phencyclidine Scrn Ur Amphetamines Screen U Benzodiazepines Scrn U Oth Cocaine Metabols U Cannabinoids Screen Influenza Typ A,B (EIA) Assessment & Plan (1) COPD exacerbation Status: Acute (2) Diabetes Status: Acute (3) Breast cancer Status: Acute (4) Hyperlipidemia Status: Acute (5) Hypothyroid Status: Acute (6) HTN (hypertension) Status: Acute - Assessment and Plan (Free Text) Assessment: 68 YO FEMALE WITH A HX MULT MED PROBS ADM WITH COPD EXAC +SEVERE BRONCHITIS., CX R REVIEWED. CTA REVIEWED, NEG PE. CONT NEB BD., MONITOR O2 SAT. ABG NOTED. IMPROVING ON HUMIDIFIED AIR NOW. STEROID TAPER TOLERATED. CARDIO W/U IN PROGRESS. ?UNDERLYING METASTATIC CA. GI/DVT PROPHYLAXIS. PROG GUARDED. DISCUSSED WITH STAFF AT LENGTH AND FAMILY AT BEDSIDE.
[2018-08-10] MEDS: Lactobacillus Acidophilus 500 MU Cap PO SCH (19:32)
[2018-08-11] MEDS: Albuterol-Ipratrop 3 mg / 0.5 (3 ml) UD INH SCH ×4 (01:15→20:21)
[2018-08-11] MEDS: MethylPREDNISolone 40 mg Vial IVP SCH ×3 (03:27→19:37)
[2018-08-11] MEDS: Levothyroxine 100 MCG TAB PO SCH (06:12)
[2018-08-11] MEDS: Fluticasone-Vilanterol 100/25mcg Diskus INH SCH (07:25)
[2018-08-11] MEDS: (Novolog) Insulin Aspart, Recombinant 100 u/ml 10 ml vial SC SCH ×4 (08:01→22:22)
[2018-08-11] MEDS ORDERED: Ergocalciferol 50,000 Intl Units Cap PO SCH (10:00)
[2018-08-11] MEDS ORDERED: MAGNESIUM AMINO ACID CHELATE PO SCH (10:00)
[2018-08-11] MEDS: Lactobacillus Acidophilus 500 MU Cap PO SCH ×2 (10:10→17:49)
[2018-08-11] MEDS: Pantoprazole 40 mg EC Tab PO SCH (10:13)
[2018-08-11] MEDS: Omega-3-Acid Ethyl Esters 1 GM Cap PO SCH (10:14)
[2018-08-11] MEDS: Enoxaparin 40 mg Syringe SC SCH (10:16)
--- NOTE | 2018-08-11 10:18 | CP.PCM.PN ---
Subjective - Date & Time of Evaluation Date of Evaluation: 08/11/18 Time of Evaluation: 10:16 - Subjective Subjective: PT ALERT, SLEPT OK ON 2L O2. LESS COUGH, STILL SOB. ROS; OTHERWISE NEG Objective - Vital Signs/Intake and Output Vital Signs (last 24 hours): Temp Pulse Resp BP Pulse Ox 97.9 F 90 18 106/66 96 08/11/18 08:22 08/11/18 09:02 08/11/18 08:22 08/11/18 08:22 08/11/18 08:22 Intake and Output: 08/11/18 08/11/18 06:59 18:59 Output Total 400 Balance -400 - Medications Medications: Current Medications Albuterol/Ipratropium (Duoneb 3 Mg/0.5 Mg (3 Ml) Ud) 3 ml INH RQ6 [facility] Last Admin: 08/11/18 07:26 Dose: 3 ml Alprazolam (Xanax) 1 mg PO DAILY PRN PRN Reason: Anxiety Last Admin: 08/11/18 01:33 Dose: 1 mg Aspirin (Ecotrin) 81 mg PO DAILY [facility] Last Admin: 08/10/18 10:03 Dose: 81 mg Cyanocobalamin (Vitamin B12 1000 Mcg Tab) 2,000 mcg PO DAILY [facility] Dextrose (Dextrose 50% Inj) 0 ml IV STAT PRN; Protocol PRN Reason: Hypoglycemia Protocol Dextrose (Glutose 15) 0 gm PO ONCE PRN; Protocol PRN Reason: Hypoglycemia Protocol Enoxaparin Sodium (Lovenox) 40 mg SC DAILY [facility] Last Admin: 08/10/18 10:03 Dose: 40 mg Ergocalciferol (Drisdol 50,000 Intl Units Cap) 1 cap PO QWK [facility] Fenofibrate (Tricor) 48 mg PO DAILY [facility] Fluticasone/Vilanterol (Breo Ellipta 100-25 Mcg Inh) 1 puff INH RQD [facility] Last Admin: 08/11/18 07:25 Dose: Not Given Gabapentin (Neurontin) 800 mg PO TID PRN PRN Reason: to give with dilaudid Last Admin: 08/11/18 00:22 Dose: 800 mg Glucagon (Glucagen Diagnostic Kit) 0 mg IM STAT PRN; Protocol PRN Reason: Hypoglycemia Protocol Hydromorphone HCl (Dilaudid) 2 mg PO Q8 PRN PRN Reason: pain Last Admin: 08/11/18 00:23 Dose: 2 mg Azithromycin 500 mg/ Sodium (Chloride) 250 mls @ 250 mls/hr IVPB DAILY [facility]; Protocol Last Admin: 08/10/18 10:04 Dose: 250 mls/hr Dextrose (Dextrose 5% In Water 1000 Ml) 1,000 mls @ 0 mls/hr IV .Q0M PRN; Protocol PRN Reason: Hypoglycemia Protocol Insulin Aspart (Novolog) 0 unit SC [facility]; Protocol Insulin Detemir (Levemir) 35 unit SC [facility] Lactobacillus Acidophilus (Bacid Acidophilus) 1 cap PO BID [facility] Last Admin: 08/10/18 19:32 Dose: 1 cap Levothyroxine Sodium (Synthroid) 100 mcg PO DAILY@0630 [facility] Last Admin: 08/11/18 06:12 Dose: 100 mcg Lidocaine (Lidoderm) 1 ea TD DAILY PRN PRN Reason: pain Methylprednisolone (Solu-Medrol) 40 mg IVP Q8H [facility] Stop: 08/12/18 19:31 Last Admin: 08/11/18 03:27 Dose: 40 mg Montelukast Sodium (Singulair) 10 mg PO [facility] Last Admin: 08/09/18 21:54 Dose: 10 mg [id number] Ethyl Esters (Lovaza) 1 gm PO DAILY [facility] Pantoprazole Sodium (Protonix Ec Tab) 40 mg PO DAILY [facility] Last Admin: 08/10/18 15:02 Dose: 40 mg Pneumococcal Polyvalent Vaccine (Pneumovax 23 Vaccine) 0.5 ml IM .ONCE ONE Stop: 08/12/18 12:01 Repaglinide (Prandin) 1 mg PO TID [facility] Last Admin: 08/10/18 18:10 Dose: 1 mg Rosuvastatin Calcium (Crestor) 20 mg PO [facility] Last Admin: 08/10/18 21:30 Dose: 20 mg Sucralfate (Carafate Tab) 1 gm PO QID [facility] Last Admin: 08/10/18 21:30 Dose: 1 gm - Labs Labs: 08/09/18 18:56 08/09/18 18:56 PT 13.0 SECONDS (9.7-12.2) H 08/10/18 07:26 INR 1.2 08/10/18 07:26 APTT 26 SECONDS (21-34) 08/10/18 07:26 - Constitutional Appears: No Acute Distress - Head Exam Head Exam: ATRAUMATIC, NORMOCEPHALIC - Eye Exam Eye Exam: EOMI, Normal appearance - ENT Exam ENT Exam: Mucous Membranes Moist - Neck Exam Neck Exam: Normal Inspection - Respiratory Exam Respiratory Exam: Decreased Breath Sounds, Wheezes. absent: Respiratory Distress - Cardiovascular Exam Cardiovascular Exam: RRR, +S1, +S2 - GI/Abdominal Exam GI & Abdominal Exam: Soft. absent: Tenderness - Rectal Exam Rectal Exam: Deferred - Extremities Exam Extremities Exam: absent: Calf Tenderness, Pedal Edema - Back Exam Back Exam: absent: CVA tenderness (L), CVA tenderness (R) - Neurological Exam Neurological Exam: Alert, Awake, CN II-XII Intact, Oriented x3 - Psychiatric Exam Psychiatric exam: Normal Affect, Normal Mood - Skin Skin Exam: absent: Rash Assessment and Plan (1) COPD exacerbation Status: Acute (2) Diabetes Status: Acute (3) Breast cancer Status: Acute (4) Hyperlipidemia Status: Acute (5) Hypothyroid Status: Acute (6) HTN (hypertension) Status: Acute - Assessment and Plan (Free Text) Assessment: RESP STATUS LESS DYSPNEIC., STILL WITH BRONCHOSPASM., CONT NEB BD., IV STEROIDS.. PEAK FLOW 100-150 NOW. MONITOR O2 SAT. CXR REVIEWED. CONT AB. INCREASE OOB. DISCUSSED WITH STAFF AND RT AT LENGTH.
[2018-08-11] MEDS: Azithromycin 500 MG in Sodium Chloride 0.9% 250 ML IVPB SCH (12:22)
--- NOTE | 2018-08-11 14:28 | CP.PCM.PN ---
Subjective - Date & Time of Evaluation Date of Evaluation: 08/11/18 Time of Evaluation: 14:31 - Subjective Subjective: PGY3 Medicine Note for Dr. Esequiel Reyes This patient was seen and examined at bedside this AM; denies any acute complaints; states had some trouble sleeping 2/2 to the bipap but breathing was much better compared to yesterday; denies all other complaints. Objective - Vital Signs/Intake and Output Vital Signs (last 24 hours): Temp Pulse Resp BP Pulse Ox 97.9 F 90 18 106/66 97 08/11/18 08:22 08/11/18 09:02 08/11/18 08:22 08/11/18 08:22 08/11/18 13:10 Intake and Output: 08/11/18 08/11/18 06:59 18:59 Output Total 400 Balance -400 - Medications Medications: Current Medications Albuterol/Ipratropium (Duoneb 3 Mg/0.5 Mg (3 Ml) Ud) 3 ml INH RQ6 [facility] Last Admin: 08/11/18 07:26 Dose: 3 ml Alprazolam (Xanax) 1 mg PO DAILY PRN PRN Reason: Anxiety Last Admin: 08/11/18 01:33 Dose: 1 mg Aspirin (Ecotrin) 81 mg PO DAILY [facility] Last Admin: 08/11/18 10:13 Dose: 81 mg Cyanocobalamin (Vitamin B12 1000 Mcg Tab) 2,000 mcg PO DAILY [facility] Last Admin: 08/11/18 10:11 Dose: 2,000 mcg Dextrose (Dextrose 50% Inj) 0 ml IV STAT PRN; Protocol PRN Reason: Hypoglycemia Protocol Dextrose (Glutose 15) 0 gm PO ONCE PRN; Protocol PRN Reason: Hypoglycemia Protocol Enoxaparin Sodium (Lovenox) 40 mg SC DAILY [facility] Last Admin: 08/11/18 10:16 Dose: 40 mg Ergocalciferol (Drisdol 50,000 Intl Units Cap) 1 cap PO QWK [facility] Last Admin: 08/11/18 10:17 Dose: 1 cap Fenofibrate (Tricor) 48 mg PO DAILY [facility] Last Admin: 08/11/18 10:13 Dose: 48 mg Fluticasone/Vilanterol (Breo Ellipta 100-25 Mcg Inh) 1 puff INH RQD [facility] Last Admin: 08/11/18 07:25 Dose: Not Given Gabapentin (Neurontin) 800 mg PO TID PRN PRN Reason: to give with dilaudid Last Admin: 08/11/18 00:22 Dose: 800 mg Glucagon (Glucagen Diagnostic Kit) 0 mg IM STAT PRN; Protocol PRN Reason: Hypoglycemia Protocol Hydromorphone HCl (Dilaudid) 2 mg PO Q8 PRN PRN Reason: pain Last Admin: 08/11/18 00:23 Dose: 2 mg Azithromycin 500 mg/ Sodium (Chloride) 250 mls @ 250 mls/hr IVPB DAILY [facility]; Protocol Last Admin: 08/11/18 12:22 Dose: 250 mls/hr Dextrose (Dextrose 5% In Water 1000 Ml) 1,000 mls @ 0 mls/hr IV .Q0M PRN; Protocol PRN Reason: Hypoglycemia Protocol Insulin Aspart (Novolog) 0 unit SC ACHS [facility]; Protocol Last Admin: 08/11/18 12:14 Dose: 6 u Insulin Aspart (Novolog) 10 unit SC ONCE ONE Stop: 08/11/18 14:25 Insulin Detemir (Levemir) 35 unit SC [facility] Lactobacillus Acidophilus (Bacid Acidophilus) 1 cap PO BID [facility] Last Admin: 08/11/18 10:10 Dose: 1 cap Levothyroxine Sodium (Synthroid) 100 mcg PO DAILY@0630 [facility] Last Admin: 08/11/18 06:12 Dose: 100 mcg Lidocaine (Lidoderm) 1 ea TD DAILY PRN PRN Reason: pain Methylprednisolone (Solu-Medrol) 40 mg IVP Q8H [facility] Stop: 08/12/18 19:31 Last Admin: 08/11/18 12:18 Dose: 40 mg Montelukast Sodium (Singulair) 10 mg PO HS [facility] Last Admin: 08/09/18 21:54 Dose: 10 mg Zodkw-7-Fyln Ethyl Esters (Lovaza) 1 gm PO DAILY [facility] Last Admin: 08/11/18 10:14 Dose: 1 gm Pantoprazole Sodium (Protonix Ec Tab) 40 mg PO DAILY [facility] Last Admin: 08/11/18 10:13 Dose: 40 mg Pneumococcal Polyvalent Vaccine (Pneumovax 23 Vaccine) 0.5 ml IM .ONCE ONE Stop: 08/12/18 12:01 Repaglinide (Prandin) 1 mg PO TID [facility] Last Admin: 08/11/18 13:46 Dose: 1 mg Rosuvastatin Calcium (Crestor) 20 mg PO HS [facility] Last Admin: 08/10/18 21:30 Dose: 20 mg Sucralfate (Carafate Tab) 1 gm PO QID [facility] Last Admin: 08/11/18 13:46 Dose: 1 gm - Labs Labs: 08/09/18 18:56 08/09/18 18:56 PT 13.0 SECONDS (9.7-12.2) H 08/10/18 07:26 INR 1.2 08/10/18 07:26 APTT 26 SECONDS (21-34) 08/10/18 07:26 - Constitutional Appears: Non-toxic - Head Exam Head Exam: ATRAUMATIC - Eye Exam Eye Exam: EOMI, Normal appearance Pupil Exam: PERRL - ENT Exam ENT Exam: Mucous Membranes Moist - Neck Exam Neck Exam: Full ROM. absent: Lymphadenopathy - Respiratory Exam Respiratory Exam: Clear to Ausculation Bilateral, NORMAL BREATHING PATTERN. absent: Rales, Rhonchi, Wheezes - Cardiovascular Exam Cardiovascular Exam: REGULAR RHYTHM, +S1, +S2 - GI/Abdominal Exam GI & Abdominal Exam: Soft, Normal Bowel Sounds. absent: Tenderness - Extremities Exam Extremities Exam: Full ROM. absent: Calf Tenderness - Back Exam Back Exam: NORMAL INSPECTION. absent: CVA tenderness (L), CVA tenderness (R) - Neurological Exam Neurological Exam: Alert, Awake, Oriented x3 - Psychiatric Exam Psychiatric exam: Normal Affect - Skin Skin Exam: Warm Assessment and Plan - Assessment and Plan (Free Text) Assessment: 68yo F admitted for COPD exacerbation COPD exacerbation; improving -BiPap at night -SOlumedrol taper 40mg IV Q8H currently -duoneb q4h, albuterol q4h -azithromycin 500mg IV daily -monteleukast 10mg daily -breo-elipta daily DM; uncontrolled -increasing RISS/nighttime insulin 2/2 to steroid use -patient will take same insulin as outpatient with increased meal time dosing as will be d/c on steroids Anxiety -c/w xanax 1mg daily at night Neuropathy -gabapentin 300mg TID Hypothyroidism -100mcg daily HLD -Lovaza 1g and Crestor 20 daily DM -RISS high -35 Units Levemir nighttime -replanigide Prophylaxis -GI prophyalxis not indicated as patient eating -Lovenox Pr Patient seen and examined w/ Dr. Esequiel Huerta PGY3
[2018-08-11] MEDS ORDERED: (Novolog) Insulin Aspart, Recombinant 100 u/ml 10 ml vial SC ONE (15:00)
--- NOTE | 2018-08-11 20:56 | CARD ---
APPROVED REPORT Date of service: 08/09/2018 EKG Measurement Heart [id number] <Conclusion> Sinus tachycardia Cannot rule out Anterior infarct, age undetermined Abnormal ECG
[2018-08-11] MEDS ORDERED: Insulin Detemir 100 units/ml Vial (Levemir) SC STA (22:19)
[2018-08-11] MEDS ORDERED: (Novolog) Insulin Aspart, Recombinant 100 u/ml 10 ml vial SC STA (22:20)
[2018-08-11] MEDS: Insulin Detemir 100 units/ml Vial (Levemir) SC SCH (22:22)
--- NOTE | 2018-08-11 23:54 | CP.PCM.PN ---
Subjective - Date & Time of Evaluation Date of Evaluation: 08/11/18 Time of Evaluation: 10:40 - Subjective Subjective: clinically same Objective - Vital Signs/Intake and Output Vital Signs (last 24 hours): Temp Pulse Resp BP Pulse Ox 98.3 F 102 H 20 119/66 96 08/11/18 15:00 08/11/18 15:00 08/11/18 15:00 08/11/18 15:00 08/11/18 15:00 - Medications Medications: Current Medications Albuterol/Ipratropium (Duoneb 3 Mg/0.5 Mg (3 Ml) Ud) 3 ml INH RQ6 [facility] Last Admin: 08/11/18 20:21 Dose: 3 ml Alprazolam (Xanax) 1 mg PO DAILY PRN PRN Reason: Anxiety Last Admin: 08/11/18 01:33 Dose: 1 mg Aspirin (Ecotrin) 81 mg PO DAILY [facility] Last Admin: 08/11/18 10:13 Dose: 81 mg Cyanocobalamin (Vitamin B12 1000 Mcg Tab) 2,000 mcg PO DAILY [facility] Last Admin: 08/11/18 10:11 Dose: 2,000 mcg Dextrose (Dextrose 50% Inj) 0 ml IV STAT PRN; Protocol PRN Reason: Hypoglycemia Protocol Dextrose (Glutose 15) 0 gm PO ONCE PRN; Protocol PRN Reason: Hypoglycemia Protocol Enoxaparin Sodium (Lovenox) 40 mg SC DAILY [facility] Last Admin: 08/11/18 10:16 Dose: 40 mg Ergocalciferol (Drisdol 50,000 Intl Units Cap) 1 cap PO QWK [facility] Last Admin: 08/11/18 10:17 Dose: 1 cap Fenofibrate (Tricor) 48 mg PO DAILY [facility] Last Admin: 08/11/18 10:13 Dose: 48 mg Fluticasone/Vilanterol (Breo Ellipta 100-25 Mcg Inh) 1 puff INH RQD [facility] Last Admin: 08/11/18 07:25 Dose: Not Given Gabapentin (Neurontin) 800 mg PO TID PRN PRN Reason: to give with dilaudid Last Admin: 08/11/18 19:31 Dose: 800 mg Glucagon (Glucagen Diagnostic Kit) 0 mg IM STAT PRN; Protocol PRN Reason: Hypoglycemia Protocol Hydromorphone HCl (Dilaudid) 2 mg PO Q8 PRN PRN Reason: pain Last Admin: 08/11/18 19:31 Dose: 2 mg Azithromycin 500 mg/ Sodium (Chloride) 250 mls @ 250 mls/hr IVPB DAILY [facility]; Protocol Last Admin: 08/11/18 12:22 Dose: 250 mls/hr Dextrose (Dextrose 5% In Water 1000 Ml) 1,000 mls @ 0 mls/hr IV .Q0M PRN; Protocol PRN Reason: Hypoglycemia Protocol Insulin Aspart (Novolog) 0 unit SC ACHS [facility]; Protocol Last Admin: 08/11/18 22:22 Dose: Not Given Insulin Detemir (Levemir) 35 unit SC [facility] Last Admin: 08/11/18 22:22 Dose: Not Given Lactobacillus Acidophilus (Bacid Acidophilus) 1 cap PO BID [facility] Last Admin: 08/11/18 17:49 Dose: 1 cap Levothyroxine Sodium (Synthroid) 100 mcg PO DAILY@0630 [facility] Last Admin: 08/11/18 06:12 Dose: 100 mcg Lidocaine (Lidoderm) 1 ea TD DAILY PRN PRN Reason: pain Methylprednisolone (Solu-Medrol) 40 mg IVP Q8H [facility] Stop: 08/12/18 19:31 Last Admin: 08/11/18 19:37 Dose: 40 mg Montelukast Sodium (Singulair) 10 mg PO [facility] Last Admin: 08/11/18 23:12 Dose: 10 mg Ymyla-9-Fwvu Ethyl Esters (Lovaza) 1 gm PO DAILY [facility] Last Admin: 08/11/18 10:14 Dose: 1 gm Pantoprazole Sodium (Protonix Ec Tab) 40 mg PO DAILY [facility] Last Admin: 08/11/18 10:13 Dose: 40 mg Pneumococcal Polyvalent Vaccine (Pneumovax 23 Vaccine) 0.5 ml IM .ONCE ONE Stop: 08/12/18 12:01 Repaglinide (Prandin) 1 mg PO TID [facility] Last Admin: 08/11/18 17:49 Dose: 1 mg Rosuvastatin Calcium (Crestor) 20 mg PO [facility] Last Admin: 08/11/18 23:12 Dose: 20 mg Sucralfate (Carafate Tab) 1 gm PO QID [facility] Last Admin: 08/11/18 23:12 Dose: 1 gm - Labs Labs: 08/09/18 18:56 08/09/18 18:56 PT 13.0 SECONDS (9.7-12.2) H 08/10/18 07:26 INR 1.2 08/10/18 07:26 APTT 26 SECONDS (21-34) 08/10/18 07:26 - Constitutional Appears: Well - Head Exam Head Exam: ATRAUMATIC, NORMAL INSPECTION, NORMOCEPHALIC - Eye Exam Eye Exam: EOMI, Normal appearance, PERRL Pupil Exam: NORMAL ACCOMODATION, PERRL - ENT Exam ENT Exam: Mucous Membranes Moist, Normal Exam - Neck Exam Neck Exam: Full ROM, Normal Inspection. absent: Lymphadenopathy - Respiratory Exam Respiratory Exam: Decreased Breath Sounds - Cardiovascular Exam Cardiovascular Exam: REGULAR RHYTHM, +S1, +S2 - GI/Abdominal Exam GI & Abdominal Exam: Soft, Diminished Bowel Sounds - Rectal Exam Rectal Exam: Deferred
[2018-08-12] MEDS: Albuterol-Ipratrop 3 mg / 0.5 (3 ml) UD INH SCH ×4 (01:30→20:05)
[2018-08-12] MEDS ORDERED: (Novolog) Insulin Aspart, Recombinant 100 u/ml 10 ml vial SC STA (02:29)
[2018-08-12] MEDS: MethylPREDNISolone 40 mg Vial IVP SCH ×3 (02:50→20:17)
[2018-08-12] MEDS: Levothyroxine 100 MCG TAB PO SCH (06:37)
[2018-08-12] MEDS: Fluticasone-Vilanterol 100/25mcg Diskus INH SCH (07:30)
[2018-08-12] MEDS: (Novolog) Insulin Aspart, Recombinant 100 u/ml 10 ml vial SC SCH ×4 (08:05→22:20)
[2018-08-12] MEDS: Pantoprazole 40 mg EC Tab PO SCH (10:36)
--- NOTE | 2018-08-12 10:36 | CP.PCM.PN ---
Subjective - Date & Time of Evaluation Date of Evaluation: 08/12/18 Time of Evaluation: 10:33 - Subjective Subjective: PT ALERT, FEELS BETTER. LESS COUGH NO SPUTUM. AMBULATED. ROS; OTHERWISE NEG. Objective - Vital Signs/Intake and Output Vital Signs (last 24 hours): Temp Pulse Resp BP Pulse Ox 98.0 F 93 H 20 107/65 96 08/12/18 07:30 08/12/18 08:05 08/12/18 07:30 08/12/18 07:30 08/12/18 07:30 - Medications Medications: Current Medications Albuterol/Ipratropium (Duoneb 3 Mg/0.5 Mg (3 Ml) Ud) 3 ml INH RQ6 [facility] Last Admin: 08/12/18 07:18 Dose: 3 ml Alprazolam (Xanax) 1 mg PO DAILY PRN PRN Reason: Anxiety Last Admin: 08/11/18 01:33 Dose: 1 mg Aspirin (Ecotrin) 81 mg PO DAILY [facility] Last Admin: 08/11/18 10:13 Dose: 81 mg Cyanocobalamin (Vitamin B12 1000 Mcg Tab) 2,000 mcg PO DAILY [facility] Last Admin: 08/11/18 10:11 Dose: 2,000 mcg Dextrose (Dextrose 50% Inj) 0 ml IV STAT PRN; Protocol PRN Reason: Hypoglycemia Protocol Dextrose (Glutose 15) 0 gm PO ONCE PRN; Protocol PRN Reason: Hypoglycemia Protocol Enoxaparin Sodium (Lovenox) 40 mg SC DAILY [facility] Last Admin: 08/11/18 10:16 Dose: 40 mg Ergocalciferol (Drisdol 50,000 Intl Units Cap) 1 cap PO QWK [facility] Last Admin: 08/11/18 10:17 Dose: 1 cap Fenofibrate (Tricor) 48 mg PO DAILY [facility] Last Admin: 08/11/18 10:13 Dose: 48 mg Fluticasone/Vilanterol (Breo Ellipta 100-25 Mcg Inh) 1 puff INH RQD [facility] Last Admin: 08/12/18 07:30 Dose: 1 puff Gabapentin (Neurontin) 800 mg PO TID PRN PRN Reason: to give with dilaudid Last Admin: 08/11/18 19:31 Dose: 800 mg Glucagon (Glucagen Diagnostic Kit) 0 mg IM STAT PRN; Protocol PRN Reason: Hypoglycemia Protocol Hydromorphone HCl (Dilaudid) 2 mg PO Q8 PRN PRN Reason: pain Last Admin: 08/11/18 19:31 Dose: 2 mg Azithromycin 500 mg/ Sodium (Chloride) 250 mls @ 250 mls/hr IVPB DAILY [facility]; Protocol Last Admin: 08/11/18 12:22 Dose: 250 mls/hr Dextrose (Dextrose 5% In Water 1000 Ml) 1,000 mls @ 0 mls/hr IV .Q0M PRN; Protocol PRN Reason: Hypoglycemia Protocol Insulin Aspart (Novolog) 0 unit SC [facility]; Protocol Last Admin: 08/12/18 08:05 Dose: 10 units Insulin Detemir (Levemir) 35 unit SC [facility] Last Admin: 08/11/18 22:22 Dose: Not Given Lactobacillus Acidophilus (Bacid Acidophilus) 1 cap PO BID [facility] Last Admin: 08/11/18 17:49 Dose: 1 cap Levothyroxine Sodium (Synthroid) 100 mcg PO DAILY@0630 [facility] Last Admin: 08/12/18 06:37 Dose: 100 mcg Lidocaine (Lidoderm) 1 ea TD DAILY PRN PRN Reason: pain Methylprednisolone (Solu-Medrol) 40 mg IVP Q8H [facility] Stop: 08/12/18 19:31 Last Admin: 08/12/18 02:50 Dose: 40 mg Montelukast Sodium (Singulair) 10 mg PO [facility] Last Admin: 08/11/18 23:12 Dose: 10 mg Frcqz-7-Dnal Ethyl Esters (Lovaza) 1 gm PO DAILY [facility] Last Admin: 08/11/18 10:14 Dose: 1 gm Pantoprazole Sodium (Protonix Ec Tab) 40 mg PO DAILY [facility] Last Admin: 08/11/18 10:13 Dose: 40 mg Pneumococcal Polyvalent Vaccine (Pneumovax 23 Vaccine) 0.5 ml IM .ONCE ONE Stop: 08/12/18 12:01 Repaglinide (Prandin) 1 mg PO TID [facility] Last Admin: 08/11/18 17:49 Dose: 1 mg Rosuvastatin Calcium (Crestor) 20 mg PO [facility] Last Admin: 08/11/18 23:12 Dose: 20 mg Sucralfate (Carafate Tab) 1 gm PO QID [facility] Last Admin: 08/11/18 23:12 Dose: 1 gm - Labs Labs: 08/09/18 18:56 08/09/18 18:56 PT 13.0 SECONDS (9.7-12.2) H 08/10/18 07:26 INR 1.2 08/10/18 07:26 APTT 26 SECONDS (21-34) 08/10/18 07:26 - Constitutional Appears: No Acute Distress - Head Exam Head Exam: ATRAUMATIC, NORMOCEPHALIC - Eye Exam Eye Exam: EOMI, Normal appearance - ENT Exam ENT Exam: Mucous Membranes Moist - Neck Exam Neck Exam: Normal Inspection - Respiratory Exam Respiratory Exam: Wheezes Additional comments: BETTER AIR MOVEMENT - Cardiovascular Exam Cardiovascular Exam: RRR, +S1, +S2 - GI/Abdominal Exam GI & Abdominal Exam: Soft. absent: Tenderness - Rectal Exam Rectal Exam: Deferred - Extremities Exam Extremities Exam: absent: Calf Tenderness, Pedal Edema - Back Exam Back Exam: absent: CVA tenderness (L), CVA tenderness (R) - Neurological Exam Neurological Exam: Alert, Awake, CN II-XII Intact, Oriented x3 - Psychiatric Exam Psychiatric exam: Normal Mood - Skin Skin Exam: absent: Rash Assessment and Plan (1) COPD exacerbation Status: Acute (2) Diabetes Status: Acute (3) Breast cancer Status: Acute (4) Hyperlipidemia Status: Acute (5) Hypothyroid Status: Acute (6) HTN (hypertension) Status: Acute - Assessment and Plan (Free Text) Assessment: RESP STATUS IMPROVING., LESS BRONCHOSPASM NOW., TAPER IV STEROIDS, CONT NEB BD., MONITOR O2 SAT. D/C BIPAP. CXR REVIEWED. DISCUSSED WITH STAFF AT LENGTH.,
[2018-08-12] MEDS: Omega-3-Acid Ethyl Esters 1 GM Cap PO SCH (10:37)
[2018-08-12] MEDS: Lactobacillus Acidophilus 500 MU Cap PO SCH ×2 (10:38→17:42)
[2018-08-12] MEDS: Enoxaparin 40 mg Syringe SC SCH (10:46)
[2018-08-12] MEDS: Azithromycin 500 MG in Sodium Chloride 0.9% 250 ML IVPB SCH (10:47)
[2018-08-12 11:46] LABS: BASO % 0.1 % (0.0-2.0); LYMPH # 0.9 K/uL (1.0-4.3); MEAN CELL VOLUME 93.5 fL (81.0-99.0); MEAN CORPUSCULAR HEMOGLOBIN 31.1 pg (27.0-31.0); MEAN CORPUSCULAR HGB CONC 33.3 g/dL (33.0-37.0); MEAN PLATELET VOLUME 10.3 fL (7.2-11.7); MONO # 0.5 K/uL (0.0-0.8); MONO % 2.6 % (0.0-10.0); NEUT # 17.1 K/uL (1.8-7.0); NEUT % 92.3 % (50.0-75.0); PLATELET COUNT 234 K/uL (130-400); RBC 3.53 Mil/uL (3.80-5.20); RED CELL DISTRIBUTION WIDTH 14.7 % (11.5-14.5); WHITE BLOOD COUNT 18.5 K/uL (4.8-10.8)
[2018-08-12] MEDS ORDERED: Pneumococcal 23-Valent Vaccine IM ONE (12:00)
[2018-08-12 12:06] LABS: ALB/GLOB RATIO 1.2 (1.0-2.1); ALBUMIN 4.1 g/dL (3.5-5.0); ALT/SGPT 27 U/L (9-52); AST/SGOT 22 U/L (14-36); BLOOD UREA NITROGEN 29 mg/dL (7-17); CALCIUM 9.2 mg/dl (8.6-10.4); GFR NON-AFRICAN AMERICAN > 60
[2018-08-12 12:17] LABS: BANDS 2 % (0-2); LYMPHOCYTE 5 % (20-40); MONOCYTE 5 % (0-10); MYELOCYTE 1 % (0-0); NEUTROPHIL 87 % (50-75); PLATELET ESTIMATE NORMAL (NORMAL); TOTAL CELLS COUNTED 100
[2018-08-12 12:18] LABS: HYPOCHROMIC SLIGHT
[2018-08-12 12:19] LABS: TARGET CELLS SLIGHT
--- NOTE | 2018-08-12 12:59 | CP.PCM.PN ---
Subjective - Date & Time of Evaluation Date of Evaluation: 08/12/18 Time of Evaluation: 11:10 - Subjective Subjective: clinically same Objective - Vital Signs/Intake and Output Vital Signs (last 24 hours): Temp Pulse Resp BP Pulse Ox 98.0 F 93 H 20 107/65 96 08/12/18 07:30 08/12/18 08:05 08/12/18 07:30 08/12/18 07:30 08/12/18 07:30 - Medications Medications: Current Medications Albuterol/Ipratropium (Duoneb 3 Mg/0.5 Mg (3 Ml) Ud) 3 ml INH RQ6 [facility] Last Admin: 08/12/18 07:18 Dose: 3 ml Alprazolam (Xanax) 1 mg PO DAILY PRN PRN Reason: Anxiety Last Admin: 08/11/18 01:33 Dose: 1 mg Aspirin (Ecotrin) 81 mg PO DAILY [facility] Last Admin: 08/12/18 10:37 Dose: 81 mg Cyanocobalamin (Vitamin B12 1000 Mcg Tab) 2,000 mcg PO DAILY [facility] Last Admin: 08/12/18 10:40 Dose: 2,000 mcg Dextrose (Dextrose 50% Inj) 0 ml IV STAT PRN; Protocol PRN Reason: Hypoglycemia Protocol Dextrose (Glutose 15) 0 gm PO ONCE PRN; Protocol PRN Reason: Hypoglycemia Protocol Enoxaparin Sodium (Lovenox) 40 mg SC DAILY [facility] Last Admin: 08/12/18 10:46 Dose: 40 mg Ergocalciferol (Drisdol 50,000 Intl Units Cap) 1 cap PO QWK [facility] Last Admin: 08/11/18 10:17 Dose: 1 cap Fenofibrate (Tricor) 48 mg PO DAILY [facility] Last Admin: 08/12/18 10:38 Dose: 48 mg Fluticasone/Vilanterol (Breo Ellipta 100-25 Mcg Inh) 1 puff INH RQD [facility] Last Admin: 08/12/18 07:30 Dose: 1 puff Gabapentin (Neurontin) 800 mg PO TID PRN PRN Reason: to give with dilaudid Last Admin: 08/12/18 10:46 Dose: 800 mg Glucagon (Glucagen Diagnostic Kit) 0 mg IM STAT PRN; Protocol PRN Reason: Hypoglycemia Protocol Hydromorphone HCl (Dilaudid) 2 mg PO Q8 PRN PRN Reason: pain Last Admin: 08/12/18 10:44 Dose: 2 mg Azithromycin 500 mg/ Sodium (Chloride) 250 mls @ 250 mls/hr IVPB DAILY [facility]; Protocol Last Admin: 08/12/18 10:47 Dose: 250 mls/hr Dextrose (Dextrose 5% In Water 1000 Ml) 1,000 mls @ 0 mls/hr IV .Q0M PRN; Protocol PRN Reason: Hypoglycemia Protocol Insulin Aspart (Novolog) 0 unit SC ACHS [facility]; Protocol Last Admin: 08/12/18 12:38 Dose: 12 units Insulin Detemir (Levemir) 35 unit SC HS [facility] Last Admin: 08/11/18 22:22 Dose: Not Given Lactobacillus Acidophilus (Bacid Acidophilus) 1 cap PO BID [facility] Last Admin: 08/12/18 10:38 Dose: 1 cap Levothyroxine Sodium (Synthroid) 100 mcg PO DAILY@0630 [facility] Last Admin: 08/12/18 06:37 Dose: 100 mcg Lidocaine (Lidoderm) 1 ea TD DAILY PRN PRN Reason: pain Methylprednisolone (Solu-Medrol) 30 mg IVP Q8H [facility] Stop: 08/12/18 19:31 Last Admin: 08/12/18 12:40 Dose: 30 mg Montelukast Sodium (Singulair) 10 mg PO [facility] Last Admin: 08/11/18 23:12 Dose: 10 mg Nlsdd-6-Axuc Ethyl Esters (Lovaza) 1 gm PO DAILY [facility] Last Admin: 08/12/18 10:37 Dose: 1 gm Pantoprazole Sodium (Protonix Ec Tab) 40 mg PO DAILY [facility] Last Admin: 08/12/18 10:36 Dose: 40 mg Repaglinide (Prandin) 1 mg PO TID [facility] Last Admin: 08/12/18 10:40 Dose: 1 mg Rosuvastatin Calcium (Crestor) 20 mg PO HS [facility] Last Admin: 08/11/18 23:12 Dose: 20 mg Sucralfate (Carafate Tab) 1 gm PO QID [facility] Last Admin: 08/12/18 10:37 Dose: 1 gm - Labs Labs: 08/12/18 11:36 08/12/18 11:36 PT 13.0 SECONDS (9.7-12.2) H 08/10/18 07:26 INR 1.2 08/10/18 07:26 APTT 26 SECONDS (21-34) 08/10/18 07:26 - Constitutional Appears: Well - Head Exam Head Exam: ATRAUMATIC, NORMAL INSPECTION, NORMOCEPHALIC - Eye Exam Eye Exam: EOMI, Normal appearance, PERRL Pupil Exam: NORMAL ACCOMODATION, PERRL - ENT Exam ENT Exam: Mucous Membranes Moist, Normal Exam - Neck Exam Neck Exam: Full ROM, Normal Inspection. absent: Lymphadenopathy - Respiratory Exam Respiratory Exam: Decreased Breath Sounds - Cardiovascular Exam Cardiovascular Exam: REGULAR RHYTHM, +S1, +S2 - GI/Abdominal Exam GI & Abdominal Exam: Soft, Diminished Bowel Sounds - Rectal Exam Rectal Exam: Deferred
--- NOTE | 2018-08-12 17:36 | CP.PCM.PN ---
Subjective - Date & Time of Evaluation Date of Evaluation: 08/12/18 Time of Evaluation: 07:20 - Subjective Subjective: Medicine progress note ( Dr. Mcclain's service Patient was seen and examined at bedside, while resting in bed comfortably. Patient reports that she is doing well with significant symptomatic improvement. Patient denies any symptoms of fever, chills, nausea, vomiting, chest pain, palpitations, shortness of breath or cough. Objective - Vital Signs/Intake and Output Vital Signs (last 24 hours): Temp Pulse Resp BP Pulse Ox 97.7 F 86 20 123/73 97 08/12/18 15:00 08/12/18 15:00 08/12/18 15:00 08/12/18 15:00 08/12/18 15:00 Intake and Output: 08/12/18 08/12/18 06:59 18:59 Output Total 1600 Balance -1600 - Medications Medications: Current Medications Albuterol/Ipratropium (Duoneb 3 Mg/0.5 Mg (3 Ml) Ud) 3 ml INH RQ6 [facility] Last Admin: 08/12/18 13:40 Dose: 3 ml Alprazolam (Xanax) 1 mg PO DAILY PRN PRN Reason: Anxiety Last Admin: 08/11/18 01:33 Dose: 1 mg Aspirin (Ecotrin) 81 mg PO DAILY [facility] Last Admin: 08/12/18 10:37 Dose: 81 mg Cyanocobalamin (Vitamin B12 1000 Mcg Tab) 2,000 mcg PO DAILY [facility] Last Admin: 08/12/18 10:40 Dose: 2,000 mcg Dextrose (Dextrose 50% Inj) 0 ml IV STAT PRN; Protocol PRN Reason: Hypoglycemia Protocol Dextrose (Glutose 15) 0 gm PO ONCE PRN; Protocol PRN Reason: Hypoglycemia Protocol Enoxaparin Sodium (Lovenox) 40 mg SC DAILY [facility] Last Admin: 08/12/18 10:46 Dose: 40 mg Ergocalciferol (Drisdol 50,000 Intl Units Cap) 1 cap PO QWK [facility] Last Admin: 08/11/18 10:17 Dose: 1 cap Fenofibrate (Tricor) 48 mg PO DAILY [facility] Last Admin: 08/12/18 10:38 Dose: 48 mg Fluticasone/Vilanterol (Breo Ellipta 100-25 Mcg Inh) 1 puff INH RQD [facility] Last Admin: 08/12/18 07:30 Dose: 1 puff Gabapentin (Neurontin) 800 mg PO TID PRN PRN Reason: to give with dilaudid Last Admin: 08/12/18 10:46 Dose: 800 mg Glucagon (Glucagen Diagnostic Kit) 0 mg IM STAT PRN; Protocol PRN Reason: Hypoglycemia Protocol Hydromorphone HCl (Dilaudid) 2 mg PO Q8 PRN PRN Reason: pain Last Admin: 08/12/18 10:44 Dose: 2 mg Azithromycin 500 mg/ Sodium (Chloride) 250 mls @ 250 mls/hr IVPB DAILY [facility]; Protocol Last Admin: 08/12/18 10:47 Dose: 250 mls/hr Dextrose (Dextrose 5% In Water 1000 Ml) 1,000 mls @ 0 mls/hr IV .Q0M PRN; Protocol PRN Reason: Hypoglycemia Protocol Insulin Aspart (Novolog) 0 unit SC ACHS [facility]; Protocol Last Admin: 08/12/18 12:38 Dose: 12 units Insulin Detemir (Levemir) 35 unit SC [facility] Last Admin: 08/11/18 22:22 Dose: Not Given Lactobacillus Acidophilus (Bacid Acidophilus) 1 cap PO BID [facility] Last Admin: 08/12/18 10:38 Dose: 1 cap Levothyroxine Sodium (Synthroid) 100 mcg PO DAILY@0630 [facility] Last Admin: 08/12/18 06:37 Dose: 100 mcg Lidocaine (Lidoderm) 1 ea TD DAILY PRN PRN Reason: pain Methylprednisolone (Solu-Medrol) 30 mg IVP Q8H [facility] Stop: 08/12/18 19:31 Last Admin: 08/12/18 12:40 Dose: 30 mg Montelukast Sodium (Singulair) 10 mg PO HS [facility] Last Admin: 08/11/18 23:12 Dose: 10 mg Urppr-2-Feoz Ethyl Esters (Lovaza) 1 gm PO DAILY [facility] Last Admin: 08/12/18 10:37 Dose: 1 gm Pantoprazole Sodium (Protonix Ec Tab) 40 mg PO DAILY [facility] Last Admin: 08/12/18 10:36 Dose: 40 mg Repaglinide (Prandin) 1 mg PO TID [facility] Last Admin: 08/12/18 14:27 Dose: 1 mg Rosuvastatin Calcium (Crestor) 20 mg PO HS [facility] Last Admin: 08/11/18 23:12 Dose: 20 mg Sucralfate (Carafate Tab) 1 gm PO QID [facility] Last Admin: 08/12/18 14:27 Dose: 1 gm - Labs Labs: 08/12/18 11:36 08/12/18 11:36 PT 13.0 SECONDS (9.7-12.2) H 08/10/18 07:26 INR 1.2 08/10/18 07:26 APTT 26 SECONDS (21-34) 08/10/18 07:26 - Constitutional Appears: Well, No Acute Distress - Head Exam Head Exam: ATRAUMATIC, NORMAL INSPECTION - Eye Exam Eye Exam: EOMI, Normal appearance - ENT Exam ENT Exam: Mucous Membranes Moist - Respiratory Exam Respiratory Exam: NORMAL BREATHING PATTERN Additional comments: Very mild diffuse expiratory wheezing - Cardiovascular Exam Cardiovascular Exam: REGULAR RHYTHM, +S1, +S2. absent: Murmur - GI/Abdominal Exam GI & Abdominal Exam: Soft, Normal Bowel Sounds. absent: Firm, Guarding, Rigid, Tenderness - Extremities Exam Extremities Exam: Normal Inspection. absent: Calf Tenderness, Pedal Edema - Neurological Exam Neurological Exam: Alert, Awake, Oriented x3 Assessment and Plan (1) COPD exacerbation Assessment & Plan: In combination of COPD and asthma exacerbation -BiPap at night -SOlumedrol taper 40mg IV Q8H currently -duoneb q4h, albuterol q4h -azithromycin 500mg IV daily -monteleukast 10mg daily -breo-elipta daily DM; uncontrolled -increasing RISS/nighttime insulin 2/2 to steroid use -patient will take same insulin as outpatient with increased meal time dosing as will be d/c on steroids Status: Acute (2) Anxiety Assessment & Plan: -c/w xanax 1mg daily at night Status: Acute (3) Neuropathy Assessment & Plan: -gabapentin 300mg TID Status: Acute (4) Hypothyroid Assessment & Plan: Levothyroxine 100mcg PO daily Status: Acute (5) Hyperlipidemia Assessment & Plan: -Lovaza 1g, Crestor 20 daily and tricor 48mg PO daily Status: Acute (6) Diabetes Assessment & Plan: -RISS high -35 Units Levemir nighttime -replanigide Status: Acute (7) Prophylactic measure Assessment & Plan: -GI prophyalxis not indicated as patient eating -Lovenox 40mg SC daily Disposition: Plans for discharge tomorrow Patient seen and examined w/ Dr. Esequiel Reyes Status: Acute
[2018-08-12] MEDS: Insulin Detemir 100 units/ml Vial (Levemir) SC SCH (22:16)
[2018-08-13] MEDS: Albuterol-Ipratrop 3 mg / 0.5 (3 ml) UD INH SCH ×4 (01:10→20:00)
[2018-08-13] MEDS: Levothyroxine 100 MCG TAB PO SCH (05:58)
[2018-08-13 06:56] LABS: BASO % 0.1 % (0.0-2.0); HEMOGLOBIN 11.3 g/dL (11.0-16.0); LYMPH # 1.5 K/uL (1.0-4.3); LYMPH % 8.6 % (20.0-40.0); MEAN CELL VOLUME 92.9 fL (81.0-99.0); MEAN CORPUSCULAR HGB CONC 33.3 g/dL (33.0-37.0); MEAN PLATELET VOLUME 10.1 fL (7.2-11.7); MONO # 0.6 K/uL (0.0-0.8); MONO % 3.7 % (0.0-10.0); NEUT # 14.8 K/uL (1.8-7.0); NEUT % 87.6 % (50.0-75.0); PLATELET COUNT 220 K/uL (130-400); RBC 3.65 Mil/uL (3.80-5.20); RED CELL DISTRIBUTION WIDTH 14.5 % (11.5-14.5); WHITE BLOOD COUNT 16.9 K/uL (4.8-10.8)
[2018-08-13 07:31] LABS: ALB/GLOB RATIO 1.2 (1.0-2.1); ALBUMIN 3.8 g/dL (3.5-5.0); ALT/SGPT 28 U/L (9-52); AST/SGOT 25 U/L (14-36); BLOOD UREA NITROGEN 30 mg/dL (7-17); CALCIUM 9.4 mg/dl (8.6-10.4); GFR NON-AFRICAN AMERICAN > 60
[2018-08-13] MEDS: Fluticasone-Vilanterol 100/25mcg Diskus INH SCH (07:40)
[2018-08-13] MEDS: (Novolog) Insulin Aspart, Recombinant 100 u/ml 10 ml vial SC SCH ×4 (08:32→21:37)
[2018-08-13 09:12] LABS: ANISOCYTOSIS SLIGHT; BANDS 2 % (0-2); HYPOCHROMIC SLIGHT; LARGE PLATELETS PRESENT; LYMPHOCYTE 10 % (20-40); MONOCYTE 3 % (0-10); NEUTROPHIL 84 % (50-75); PLATELET ESTIMATE NORMAL (NORMAL); POIKILOCYTOSIS SLIGHT; REACTIVE LYMPHOCYTES 1 % (0-0); TOTAL CELLS COUNTED 100
--- NOTE | 2018-08-13 10:18 | CP.PCM.PN ---
Subjective - Date & Time of Evaluation Date of Evaluation: 08/13/18 Time of Evaluation: 10:15 - Subjective Subjective: PT ALERT, ++COUGH LAST NIGHT NO SPUTUM., NOW BETTER. +DRY THROAT. ROS; OTHERWISE NEG. Objective - Vital Signs/Intake and Output Vital Signs (last 24 hours): Temp Pulse Resp BP Pulse Ox 98.2 F 92 H 18 132/79 96 08/13/18 07:00 08/13/18 08:10 08/13/18 07:00 08/13/18 07:00 08/13/18 07:00 Intake and Output: 08/13/18 08/13/18 06:59 18:59 Output Total 150 Balance -150 - Medications Medications: Current Medications Albuterol/Ipratropium (Duoneb 3 Mg/0.5 Mg (3 Ml) Ud) 3 ml INH RQ6 [facility] Last Admin: 08/13/18 07:40 Dose: 3 ml Alprazolam (Xanax) 1 mg PO DAILY PRN PRN Reason: Anxiety Last Admin: 08/11/18 01:33 Dose: 1 mg Aspirin (Ecotrin) 81 mg PO DAILY [facility] Last Admin: 08/12/18 10:37 Dose: 81 mg Benzocaine/Menthol (Cepacol Sore Throat) 1 osvaldo MT QID [facility] Cyanocobalamin (Vitamin B12 1000 Mcg Tab) 2,000 mcg PO DAILY [facility] Last Admin: 08/12/18 10:40 Dose: 2,000 mcg Dextrose (Dextrose 50% Inj) 0 ml IV STAT PRN; Protocol PRN Reason: Hypoglycemia Protocol Dextrose (Glutose 15) 0 gm PO ONCE PRN; Protocol PRN Reason: Hypoglycemia Protocol Enoxaparin Sodium (Lovenox) 40 mg SC DAILY [facility] Last Admin: 08/12/18 10:46 Dose: 40 mg Ergocalciferol (Drisdol 50,000 Intl Units Cap) 1 cap PO QWK [facility] Last Admin: 08/11/18 10:17 Dose: 1 cap Fenofibrate (Tricor) 48 mg PO DAILY [facility] Last Admin: 08/12/18 10:38 Dose: 48 mg Fluticasone/Vilanterol (Breo Ellipta 100-25 Mcg Inh) 1 puff INH RQD [facility] Last Admin: 08/13/18 07:40 Dose: 1 puff Gabapentin (Neurontin) 800 mg PO TID PRN PRN Reason: to give with dilaudid Last Admin: 08/13/18 08:50 Dose: 800 mg Glucagon (Glucagen Diagnostic Kit) 0 mg IM STAT PRN; Protocol PRN Reason: Hypoglycemia Protocol Hydromorphone HCl (Dilaudid) 2 mg PO Q8 PRN PRN Reason: pain Last Admin: 08/13/18 08:51 Dose: 2 mg Azithromycin 500 mg/ Sodium (Chloride) 250 mls @ 250 mls/hr IVPB DAILY [facility]; Protocol Last Admin: 08/12/18 10:47 Dose: 250 mls/hr Insulin Aspart (Novolog) 0 unit SC ACHS [facility]; Protocol Last Admin: 08/13/18 08:32 Dose: 8 units Insulin Detemir (Levemir) 35 unit SC HS [facility] Last Admin: 08/12/18 22:16 Dose: 35 units Lactobacillus Acidophilus (Bacid Acidophilus) 1 cap PO BID [facility] Last Admin: 08/12/18 17:42 Dose: 1 cap Levothyroxine Sodium (Synthroid) 100 mcg PO DAILY@0630 [facility] Last Admin: 08/13/18 05:58 Dose: 100 mcg Lidocaine (Lidoderm) 1 ea TD DAILY PRN PRN Reason: pain Methylprednisolone (Solu-Medrol) 30 mg IVP Q8H [facility] Montelukast Sodium (Singulair) 10 mg PO HS [facility] Last Admin: 08/12/18 22:17 Dose: 10 mg Kvbtn-[id number] Ethyl Esters (Lovaza) 1 gm PO DAILY [facility] Last Admin: 08/12/18 10:37 Dose: 1 gm Pantoprazole Sodium (Protonix Ec Tab) 40 mg PO DAILY [facility] Last Admin: 08/12/18 10:36 Dose: 40 mg Repaglinide (Prandin) 1 mg PO TID [facility] Last Admin: 08/12/18 17:42 Dose: 1 mg Rosuvastatin Calcium (Crestor) 20 mg PO HS [facility] Last Admin: 08/12/18 22:17 Dose: 20 mg Sucralfate (Carafate Tab) 1 gm PO QID [facility] Last Admin: 08/12/18 22:17 Dose: 1 gm - Labs Labs: 08/13/18 06:51 08/13/18 06:51 PT 13.0 SECONDS (9.7-12.2) H 08/10/18 07:26 INR 1.2 08/10/18 07:26 APTT 26 SECONDS (21-34) 08/10/18 07:26 - Constitutional Appears: No Acute Distress - Head Exam Head Exam: ATRAUMATIC, NORMOCEPHALIC - Eye Exam Eye Exam: EOMI, Normal appearance - ENT Exam ENT Exam: Mucous Membranes Dry Additional comments: NO ORAL THRUSH - Neck Exam Neck Exam: Normal Inspection - Respiratory Exam Respiratory Exam: Wheezes - Cardiovascular Exam Cardiovascular Exam: RRR, +S1, +S2 - GI/Abdominal Exam GI & Abdominal Exam: Soft. absent: Tenderness - Rectal Exam Rectal Exam: Deferred - Extremities Exam Extremities Exam: absent: Calf Tenderness, Pedal Edema - Back Exam Back Exam: absent: CVA tenderness (L), CVA tenderness (R) - Neurological Exam Neurological Exam: Alert, Awake, CN II-XII Intact, Oriented x3 - Psychiatric Exam Psychiatric exam: Normal Mood - Skin Skin Exam: absent: Rash Assessment and Plan (1) COPD exacerbation Status: Acute (2) Diabetes Status: Acute (3) Breast cancer Status: Acute (4) Hyperlipidemia Status: Acute (5) Hypothyroid Status: Acute (6) HTN (hypertension) Status: Acute - Assessment and Plan (Free Text) Assessment: RESP STATUS NO SIG CHANGE., CONT STEROID TAPER TOLERATED. CONT NEB BD., MONITOR O2 SAT. CXR REVIEWED. AFEBRILE ON AB. ADD CEPACOL., NO ORAL THRUSH. INCREASE OOB. DISCUSSED WITH STAFF AT LENGTH.
[2018-08-13] MEDS: Enoxaparin 40 mg Syringe SC SCH (10:50)
[2018-08-13] MEDS: Azithromycin 500 MG in Sodium Chloride 0.9% 250 ML IVPB SCH (11:00)
[2018-08-13] MEDS: MethylPREDNISolone 40 mg Vial IVP SCH ×2 (11:19→18:30)
[2018-08-13] MEDS: Pantoprazole 40 mg EC Tab PO SCH (12:33)
[2018-08-13] MEDS: Omega-3-Acid Ethyl Esters 1 GM Cap PO SCH (12:34)
--- NOTE | 2018-08-13 13:09 | CP.PCM.PN ---
Subjective - Date & Time of Evaluation Date of Evaluation: 08/13/18 Time of Evaluation: 10:40 - Subjective Subjective: Medicine progress note ( Dr. Mcclain's service Patient was seen and examined at bedside, while resting in bed comfortably. As per nursing staff and patient, she had a difficult night due to cough. Patient reports that she is doing well with significant symptomatic improvement. Patient denies any symptoms of fever, chills, nausea, vomiting, chest pain, palpitations, shortness of breath but admits to non-productive cough. Objective - Vital Signs/Intake and Output Vital Signs (last 24 hours): Temp Pulse Resp BP Pulse Ox 98.2 F 92 H 18 132/79 96 08/13/18 07:00 08/13/18 08:10 08/13/18 07:00 08/13/18 07:00 08/13/18 07:00 Intake and Output: 08/13/18 08/13/18 06:59 18:59 Output Total 150 Balance -150 - Medications Medications: Current Medications Albuterol/Ipratropium (Duoneb 3 Mg/0.5 Mg (3 Ml) Ud) 3 ml INH RQ6 [facility] Last Admin: 08/13/18 07:40 Dose: 3 ml Alprazolam (Xanax) 1 mg PO DAILY PRN PRN Reason: Anxiety Last Admin: 08/11/18 01:33 Dose: 1 mg Aspirin (Ecotrin) 81 mg PO DAILY [facility] Last Admin: 08/13/18 10:55 Dose: 81 mg Benzocaine/Menthol (Cepacol Sore Throat) 1 osvaldo MT QID [facility] Cyanocobalamin (Vitamin B12 1000 Mcg Tab) 2,000 mcg PO DAILY [facility] Last Admin: 08/13/18 10:55 Dose: 2,000 mcg Dextrose (Dextrose 50% Inj) 0 ml IV STAT PRN; Protocol PRN Reason: Hypoglycemia Protocol Dextrose (Glutose 15) 0 gm PO ONCE PRN; Protocol PRN Reason: Hypoglycemia Protocol Enoxaparin Sodium (Lovenox) 40 mg SC DAILY [facility] Last Admin: 08/13/18 10:50 Dose: 40 mg Ergocalciferol (Drisdol 50,000 Intl Units Cap) 1 cap PO QWK [facility] Last Admin: 08/11/18 10:17 Dose: 1 cap Fenofibrate (Tricor) 48 mg PO DAILY [facility] Last Admin: 08/13/18 10:55 Dose: 48 mg Fluticasone/Vilanterol (Breo Ellipta 100-25 Mcg Inh) 1 puff INH RQD [facility] Last Admin: 08/13/18 07:40 Dose: 1 puff Gabapentin (Neurontin) 800 mg PO TID PRN PRN Reason: to give with dilaudid Last Admin: 08/13/18 08:50 Dose: 800 mg Glucagon (Glucagen Diagnostic Kit) 0 mg IM STAT PRN; Protocol PRN Reason: Hypoglycemia Protocol Hydromorphone HCl (Dilaudid) 2 mg PO Q8 PRN PRN Reason: pain Last Admin: 08/13/18 08:51 Dose: 2 mg Azithromycin 500 mg/ Sodium (Chloride) 250 mls @ 250 mls/hr IVPB DAILY [facility]; Protocol Last Admin: 08/13/18 11:00 Dose: 250 mls/hr Insulin Aspart (Novolog) 0 unit SC ACHS [facility]; Protocol Last Admin: 08/13/18 12:31 Dose: 8 units Insulin Detemir (Levemir) 35 unit SC HS [facility] Last Admin: 08/12/18 22:16 Dose: 35 units Lactobacillus Acidophilus (Bacid Acidophilus) 1 cap PO BID [facility] Last Admin: 08/12/18 17:42 Dose: 1 cap Levothyroxine Sodium (Synthroid) 100 mcg PO DAILY@0630 [facility] Last Admin: 08/13/18 05:58 Dose: 100 mcg Lidocaine (Lidoderm) 1 ea TD DAILY PRN PRN Reason: pain Methylprednisolone (Solu-Medrol) 30 mg IVP Q8H [facility] Last Admin: 08/13/18 11:19 Dose: 30 mg Montelukast Sodium (Singulair) 10 mg PO HS [facility] Last Admin: 08/12/18 22:17 Dose: 10 mg Grkxw-2-Zwvo Ethyl Esters (Lovaza) 1 gm PO DAILY [facility] Last Admin: 08/13/18 12:34 Dose: 1 gm Pantoprazole Sodium (Protonix Ec Tab) 40 mg PO DAILY [facility] Last Admin: 08/13/18 12:33 Dose: 40 mg Repaglinide (Prandin) 1 mg PO TID [facility] Last Admin: 08/13/18 10:55 Dose: 1 mg Rosuvastatin Calcium (Crestor) 20 mg PO HS [facility] Last Admin: 08/12/18 22:17 Dose: 20 mg Sucralfate (Carafate Tab) 1 gm PO QID [facility] Last Admin: 08/13/18 10:55 Dose: 1 gm - Labs Labs: 08/13/18 06:51 08/13/18 06:51 PT 13.0 SECONDS (9.7-12.2) H 08/10/18 07:26 INR 1.2 08/10/18 07:26 APTT 26 SECONDS (21-34) 08/10/18 07:26 - Constitutional Appears: Well, No Acute Distress - Head Exam Head Exam: ATRAUMATIC, NORMAL INSPECTION - Eye Exam Eye Exam: EOMI, Normal appearance - ENT Exam ENT Exam: Mucous Membranes Moist - Respiratory Exam Respiratory Exam: Clear to Ausculation Bilateral, NORMAL BREATHING PATTERN. absent: Wheezes Additional comments: Mild congestion on exam - Cardiovascular Exam Cardiovascular Exam: REGULAR RHYTHM, +S1, +S2 - GI/Abdominal Exam GI & Abdominal Exam: Soft, Normal Bowel Sounds. absent: Distended, Firm, Guarding, Rigid, Tenderness - Extremities Exam Extremities Exam: Normal Inspection. absent: Calf Tenderness, Pedal Edema - Neurological Exam Neurological Exam: Alert, Awake, Oriented x3 - Psychiatric Exam Psychiatric exam: Normal Affect Assessment and Plan (1) COPD exacerbation Assessment & Plan: Consultation: Radiology Scheduler, Dr. Buchanan * Management as per recommendation In combination of COPD and asthma exacerbation -BiPap at night -Solumedrol taper 30mg IV Q8H currently -Duoneb Q6h [facility], albuterol q4h -Azithromycin 500mg IV daily -Singulair 10mg daily -Cepacol Sore throat (1 QID) -Breo-elipta 1 puff INH daily -Robitussin 200mg PO Q4H DM; uncontrolled -increasing RISS/nighttime insulin 2/2 to steroid use -patient will take same insulin as outpatient with increased meal time dosing as will be d/c on steroids Status: Acute (2) Anxiety Assessment & Plan: Xanax 1mg daily at night Status: Acute (3) Neuropathy Assessment & Plan: Gabapentin 800mg PO TID Status: Acute (4) Hypothyroid Assessment & Plan: Synthroid 100mcg PO daily Status: Acute (5) Hyperlipidemia Assessment & Plan: Tricor 48mg PO daily Crestor 20mg PO daily Status: Acute (6) Diabetes Assessment & Plan: -RISS high -35 Units Levemir nighttime -replanigide Status: Acute (7) Prophylactic measure Assessment & Plan: -GI prophyalxis not indicated as patient eating -Lovenox 40mg SC daily Disposition: Plans for discharge tomorrow on medrol dose kale. As per patient, she has all of her home medications and does not need refill upon discharge Case discussed with Dr. Esequiel Reyes Status: Acute
--- NOTE | 2018-08-13 16:46 | RAD ---
Date of service: 08/13/2018 HISTORY: Shortness of breath COMPARISON: 08/09/2018. FINDINGS: LUNGS: No active pulmonary disease. PLEURA: No significant pleural effusion identified, no pneumothorax apparent. CARDIOVASCULAR: No atherosclerotic calcification present Normal. OSSEOUS STRUCTURES: No significant abnormalities. VISUALIZED UPPER ABDOMEN: Normal. OTHER FINDINGS: None. IMPRESSION: No active disease. No significant interval change compared to the prior examination(s).
[2018-08-13] MEDS: guaiFENesin 200 mg/10 ml Syrup UD PO PRN (17:33)
[2018-08-13] MEDS: Lactobacillus Acidophilus 500 MU Cap PO SCH (18:20)
[2018-08-13] MEDS: Benzocaine/Menthol (Cepacol) Lozenge MT SCH ×2 (18:21→21:34)
[2018-08-13] MEDS: Insulin Detemir 100 units/ml Vial (Levemir) SC SCH (21:32)
--- NOTE | 2018-08-13 22:08 | CP.PCM.PN ---
Subjective - Date & Time of Evaluation Date of Evaluation: 08/13/18 Time of Evaluation: 10:20 - Subjective Subjective: clinically same Objective - Vital Signs/Intake and Output Vital Signs (last 24 hours): Temp Pulse Resp BP Pulse Ox 98.2 F 104 H 20 122/82 96 08/13/18 15:00 08/13/18 15:00 08/13/18 15:00 08/13/18 15:00 08/13/18 15:00 Intake and Output: 08/13/18 08/14/18 18:59 06:59 Intake Total 250 Output Total 450 Balance -200 - Medications Medications: Current Medications Albuterol/Ipratropium (Duoneb 3 Mg/0.5 Mg (3 Ml) Ud) 3 ml INH RQ6 [facility] Last Admin: 08/13/18 20:00 Dose: 3 ml Alprazolam (Xanax) 1 mg PO DAILY PRN PRN Reason: Anxiety Last Admin: 08/11/18 01:33 Dose: 1 mg Aspirin (Ecotrin) 81 mg PO DAILY [facility] Last Admin: 08/13/18 10:55 Dose: 81 mg Benzocaine/Menthol (Cepacol Sore Throat) 1 osvaldo MT QID [facility] Last Admin: 08/13/18 21:34 Dose: 1 osvaldo Cyanocobalamin (Vitamin B12 1000 Mcg Tab) 2,000 mcg PO DAILY [facility] Last Admin: 08/13/18 10:55 Dose: 2,000 mcg Dextrose (Dextrose 50% Inj) 0 ml IV STAT PRN; Protocol PRN Reason: Hypoglycemia Protocol Dextrose (Glutose 15) 0 gm PO ONCE PRN; Protocol PRN Reason: Hypoglycemia Protocol Enoxaparin Sodium (Lovenox) 40 mg SC DAILY [facility] Last Admin: 08/13/18 10:50 Dose: 40 mg Ergocalciferol (Drisdol 50,000 Intl Units Cap) 1 cap PO QWK [facility] Last Admin: 08/11/18 10:17 Dose: 1 cap Fenofibrate (Tricor) 48 mg PO DAILY [facility] Last Admin: 08/13/18 10:55 Dose: 48 mg Fluticasone/Vilanterol (Breo Ellipta 100-25 Mcg Inh) 1 puff INH RQD [facility] Last Admin: 08/13/18 07:40 Dose: 1 puff Gabapentin (Neurontin) 800 mg PO TID PRN PRN Reason: to give with dilaudid Last Admin: 08/13/18 21:33 Dose: 800 mg Glucagon (Glucagen Diagnostic Kit) 0 mg IM STAT PRN; Protocol PRN Reason: Hypoglycemia Protocol Guaifenesin (Robitussin) 200 mg PO Q4H PRN PRN Reason: Cough and congestion Last Admin: 08/13/18 17:33 Dose: 200 mg Hydromorphone HCl (Dilaudid) 2 mg PO Q8 PRN PRN Reason: pain Last Admin: 08/13/18 20:38 Dose: 2 mg Azithromycin 500 mg/ Sodium (Chloride) 250 mls @ 250 mls/hr IVPB DAILY [facility]; Protocol Last Admin: 08/13/18 11:00 Dose: 250 mls/hr Insulin Aspart (Novolog) 0 unit SC ACHS [facility]; Protocol Last Admin: 08/13/18 21:37 Dose: 10 units Insulin Detemir (Levemir) 35 unit SC [facility] Last Admin: 08/13/18 21:32 Dose: 35 units Lactobacillus Acidophilus (Bacid Acidophilus) 1 cap PO BID [facility] Last Admin: 08/13/18 18:20 Dose: 1 cap Levothyroxine Sodium (Synthroid) 100 mcg PO DAILY@0630 [facility] Last Admin: 08/13/18 05:58 Dose: 100 mcg Lidocaine (Lidoderm) 1 ea TD DAILY PRN PRN Reason: pain Methylprednisolone (Solu-Medrol) 30 mg IVP Q8H [facility] Last Admin: 08/13/18 18:30 Dose: 30 mg Montelukast Sodium (Singulair) 10 mg PO HS [facility] Last Admin: 08/13/18 21:34 Dose: 10 mg Lzcjg-2-Mwbj Ethyl Esters (Lovaza) 1 gm PO DAILY [facility] Last Admin: 08/13/18 12:34 Dose: 1 gm Pantoprazole Sodium (Protonix Ec Tab) 40 mg PO DAILY [facility] Last Admin: 08/13/18 12:33 Dose: 40 mg Repaglinide (Prandin) 1 mg PO TID [facility] Last Admin: 08/13/18 18:20 Dose: 1 mg Rosuvastatin Calcium (Crestor) 20 mg PO HS [facility] Last Admin: 08/13/18 21:34 Dose: 20 mg Sucralfate (Carafate Tab) 1 gm PO QID [facility] Last Admin: 08/13/18 21:33 Dose: 1 gm - Labs Labs: 08/13/18 06:51 08/13/18 06:51 PT 13.0 SECONDS (9.7-12.2) H 08/10/18 07:26 INR 1.2 08/10/18 07:26 APTT 26 SECONDS (21-34) 08/10/18 07:26 - Constitutional Appears: Well - Head Exam Head Exam: ATRAUMATIC, NORMAL INSPECTION, NORMOCEPHALIC - Eye Exam Eye Exam: EOMI, Normal appearance, PERRL Pupil Exam: NORMAL ACCOMODATION, PERRL - ENT Exam ENT Exam: Mucous Membranes Moist, Normal Exam - Neck Exam Neck Exam: Full ROM, Normal Inspection. absent: Lymphadenopathy - Respiratory Exam Respiratory Exam: Decreased Breath Sounds - Cardiovascular Exam Cardiovascular Exam: REGULAR RHYTHM, +S1, +S2 - GI/Abdominal Exam GI & Abdominal Exam: Soft, Diminished Bowel Sounds - Rectal Exam Rectal Exam: Deferred
[2018-08-14] MEDS: Albuterol-Ipratrop 3 mg / 0.5 (3 ml) UD INH SCH ×4 (01:23→19:45)
[2018-08-14] MEDS: MethylPREDNISolone 40 mg Vial IVP SCH ×4 (02:34→20:00)
[2018-08-14] MEDS: Levothyroxine 100 MCG TAB PO SCH (05:31)
[2018-08-14 06:52] LABS: BASO % 0.1 % (0.0-2.0); HEMOGLOBIN 11.7 g/dL (11.0-16.0); LYMPH # 1.2 K/uL (1.0-4.3); LYMPH % 9.2 % (20.0-40.0); MEAN CELL VOLUME 93.1 fL (81.0-99.0); MEAN CORPUSCULAR HEMOGLOBIN 30.5 pg (27.0-31.0); MEAN CORPUSCULAR HGB CONC 32.8 g/dL (33.0-37.0); MEAN PLATELET VOLUME 10.3 fL (7.2-11.7); MONO # 0.4 K/uL (0.0-0.8); MONO % 3.2 % (0.0-10.0); NEUT # 11.7 K/uL (1.8-7.0); NEUT % 87.5 % (50.0-75.0); NRBC % 0.1 % (0.0-2.0); PLATELET COUNT 230 K/uL (130-400); RBC 3.84 Mil/uL (3.80-5.20); RED CELL DISTRIBUTION WIDTH 14.7 % (11.5-14.5); WHITE BLOOD COUNT 13.4 K/uL (4.8-10.8)
[2018-08-14 07:47] LABS: ALB/GLOB RATIO 1.3 (1.0-2.1); ALBUMIN 3.9 g/dL (3.5-5.0); ALT/SGPT 33 U/L (9-52); AST/SGOT 27 U/L (14-36); BLOOD UREA NITROGEN 33 mg/dL (7-17); GFR NON-AFRICAN AMERICAN > 60
[2018-08-14] MEDS: (Novolog) Insulin Aspart, Recombinant 100 u/ml 10 ml vial SC SCH ×4 (08:25→21:49)
[2018-08-14 09:03] LABS: BANDS 1 % (0-2); MONOCYTE 2 % (0-10); PLATELET ESTIMATE NORMAL (NORMAL); TOTAL CELLS COUNTED 100
[2018-08-14 09:04] LABS: ANISOCYTOSIS SLIGHT; HYPOCHROMIC SLIGHT; LYMPHOCYTE 10 % (20-40); NEUTROPHIL 87 % (50-75); POIKILOCYTOSIS SLIGHT
--- NOTE | 2018-08-14 09:51 | CP.PCM.PN ---
Subjective - Date & Time of Evaluation Date of Evaluation: 08/14/18 Time of Evaluation: 08:00 - Subjective Subjective: Medicine progress note: Dr. Sarahi Reyes's service Patient was seen and examined at bedside, while resting in bed comfortably. P vignesh reports that she is doing well with but she continues to have a dry cough. Patient denies any symptoms of fever, chills, nausea, vomiting, chest pain, palpitations, shortness of breath. Objective - Vital Signs/Intake and Output Vital Signs (last 24 hours): Temp Pulse Resp BP Pulse Ox 98.6 F 77 18 123/75 96 08/14/18 07:00 08/14/18 07:00 08/14/18 07:00 08/14/18 07:00 08/14/18 07:00 Intake and Output: 08/14/18 08/14/18 06:59 18:59 Output Total 200 Balance -200 - Medications Medications: Current Medications Albuterol/Ipratropium (Duoneb 3 Mg/0.5 Mg (3 Ml) Ud) 3 ml INH RQ6 [facility] Last Admin: 08/14/18 08:22 Dose: 3 ml Alprazolam (Xanax) 1 mg PO DAILY PRN PRN Reason: Anxiety Last Admin: 08/11/18 01:33 Dose: 1 mg Aspirin (Ecotrin) 81 mg PO DAILY [facility] Last Admin: 08/13/18 10:55 Dose: 81 mg Benzocaine/Menthol (Cepacol Sore Throat) 1 osvaldo MT QID [facility] Last Admin: 08/13/18 21:34 Dose: 1 osvaldo Cyanocobalamin (Vitamin B12 1000 Mcg Tab) 2,000 mcg PO DAILY [facility] Last Admin: 08/13/18 10:55 Dose: 2,000 mcg Dextrose (Dextrose 50% Inj) 0 ml IV STAT PRN; Protocol PRN Reason: Hypoglycemia Protocol Dextrose (Glutose 15) 0 gm PO ONCE PRN; Protocol PRN Reason: Hypoglycemia Protocol Enoxaparin Sodium (Lovenox) 40 mg SC DAILY [facility] Last Admin: 08/13/18 10:50 Dose: 40 mg Ergocalciferol (Drisdol 50,000 Intl Units Cap) 1 cap PO QWK [facility] Last Admin: 08/11/18 10:17 Dose: 1 cap Fenofibrate (Tricor) 48 mg PO DAILY [facility] Last Admin: 08/13/18 10:55 Dose: 48 mg Fluticasone/Vilanterol (Breo Ellipta 100-25 Mcg Inh) 1 puff INH RQD [facility] Last Admin: 08/13/18 07:40 Dose: 1 puff Gabapentin (Neurontin) 800 mg PO TID PRN PRN Reason: to give with dilaudid Last Admin: 08/14/18 05:31 Dose: 800 mg Glucagon (Glucagen Diagnostic Kit) 0 mg IM STAT PRN; Protocol PRN Reason: Hypoglycemia Protocol Guaifenesin (Robitussin) 200 mg PO Q4H PRN PRN Reason: Cough and congestion Last Admin: 08/13/18 17:33 Dose: 200 mg Azithromycin 500 mg/ Sodium (Chloride) 250 mls @ 250 mls/hr IVPB DAILY [facility]; Protocol Last Admin: 08/13/18 11:00 Dose: 250 mls/hr Insulin Aspart (Novolog) 0 unit SC ACHS [facility]; Protocol Last Admin: 08/14/18 08:25 Dose: 10 units Insulin Detemir (Levemir) 35 unit SC HS [facility] Last Admin: 08/13/18 21:32 Dose: 35 units Lactobacillus Acidophilus (Bacid Acidophilus) 1 cap PO BID [facility] Last Admin: 08/13/18 18:20 Dose: 1 cap Levothyroxine Sodium (Synthroid) 100 mcg PO DAILY@0630 [facility] Last Admin: 08/14/18 05:31 Dose: 100 mcg Lidocaine (Lidoderm) 1 ea TD DAILY PRN PRN Reason: pain Methylprednisolone (Solu-Medrol) 30 mg IVP Q8H [facility] Last Admin: 08/14/18 02:34 Dose: 30 mg Montelukast Sodium (Singulair) 10 mg PO HS [facility] Last Admin: 08/13/18 21:34 Dose: 10 mg Uzzda-1-Xluw Ethyl Esters (Lovaza) 1 gm PO DAILY [facility] Last Admin: 08/13/18 12:34 Dose: 1 gm Pantoprazole Sodium (Protonix Ec Tab) 40 mg PO DAILY [facility] Last Admin: 08/13/18 12:33 Dose: 40 mg Repaglinide (Prandin) 1 mg PO TID [facility] Last Admin: 08/13/18 18:20 Dose: 1 mg Rosuvastatin Calcium (Crestor) 20 mg PO HS [facility] Last Admin: 08/13/18 21:34 Dose: 20 mg Sucralfate (Carafate Tab) 1 gm PO QID [facility] Last Admin: 08/13/18 21:33 Dose: 1 gm - Labs Labs: 08/14/18 06:44 08/14/18 06:44 PT 13.0 SECONDS (9.7-12.2) H 08/10/18 07:26 INR 1.2 08/10/18 07:26 APTT 26 SECONDS (21-34) 08/10/18 07:26 - Constitutional Appears: No Acute Distress - Head Exam Head Exam: ATRAUMATIC, NORMAL INSPECTION - Eye Exam Eye Exam: EOMI, Normal appearance - ENT Exam ENT Exam: Mucous Membranes Moist - Respiratory Exam Respiratory Exam: NORMAL BREATHING PATTERN Additional comments: Mild congestion on exam - Cardiovascular Exam Cardiovascular Exam: REGULAR RHYTHM, +S1, +S2 - GI/Abdominal Exam GI & Abdominal Exam: Soft, Normal Bowel Sounds. absent: Tenderness - Extremities Exam Extremities Exam: Normal Inspection - Neurological Exam Neurological Exam: Alert, Awake, Oriented x3 - Psychiatric Exam Psychiatric exam: Normal Affect - Skin Skin Exam: Normal Color Assessment and Plan - Assessment and Plan (Free Text) Assessment: (1) COPD exacerbation Assessment & Plan: Consultation: Real Estate Leasing Agent, Dr. Buchanan * Management as per recommendation In combination of COPD and asthma exacerbation -BiPap at night -Solumedrol taper 30mg IV Q8H currently -Duoneb Q6h [facility], albuterol q4h -Azithromycin 500mg IV daily discontinued - Avelox 400mg daily started 08/14/18 -Singulair 10mg daily -Cepacol Sore throat (1 QID) -Breo-elipta 1 puff INH daily -Robitussin 200mg PO Q4H DM; uncontrolled -increasing RISS/nighttime insulin 2/2 to steroid use -patient will take same insulin as outpatient with increased meal time dosing as will be d/c on steroids Status: Acute (2) Anxiety Assessment & Plan: Xanax 1mg daily at night Status: Acute (3) Neuropathy Assessment & Plan: Gabapentin 800mg PO TID Status: Acute (4) Hypothyroid Assessment & Plan: Synthroid 100mcg PO daily Status: Acute (5) Hyperlipidemia Assessment & Plan: Tricor 48mg PO daily Crestor 20mg PO daily Status: Acute (6) Diabetes Assessment & Plan: -RISS high -35 Units Levemir nighttime -replanigide Status: Acute (7) Prophylactic measure Assessment & Plan: -GI prophyalxis not indicated as patient eating -Lovenox 40mg SC daily Disposition: Plans for discharge tomorrow on medrol dose kale and Avelox. As per patient, she has all of her home medications and does not need refill upon discharge Case discussed with Dr. Esequiel Reyes Status: Acute
[2018-08-14] MEDS: Pantoprazole 40 mg EC Tab PO SCH (10:00)
[2018-08-14] MEDS: Omega-3-Acid Ethyl Esters 1 GM Cap PO SCH (10:00)
[2018-08-14] MEDS: Lactobacillus Acidophilus 500 MU Cap PO SCH ×2 (10:00→17:52)
[2018-08-14] MEDS: Azithromycin 500 MG in Sodium Chloride 0.9% 250 ML IVPB SCH (10:01)
[2018-08-14] MEDS: Benzocaine/Menthol (Cepacol) Lozenge MT SCH ×4 (10:02→21:44)
[2018-08-14] MEDS: Enoxaparin 40 mg Syringe SC SCH (10:05)
[2018-08-14] MEDS: guaiFENesin 200 mg/10 ml Syrup UD PO PRN (10:05)
[2018-08-14] MEDS: Fluticasone-Vilanterol 100/25mcg Diskus INH SCH (10:15)
[2018-08-14 13:04] LABS: OXYCODONE SCREEN negative
--- NOTE | 2018-08-14 19:30 | CP.PCM.PN ---
Subjective - Date & Time of Evaluation Date of Evaluation: 08/14/18 Time of Evaluation: 19:28 - Subjective Subjective: PT ALERT, OOB IN CHAIR., FEELS BETTER., LESS COUGH , LESS SOB., AMBULATED. ROS; OTHERWISE NEG. Objective - Vital Signs/Intake and Output Vital Signs (last 24 hours): Temp Pulse Resp BP Pulse Ox 98.1 F 104 H 20 121/77 96 08/14/18 15:00 08/14/18 15:00 08/14/18 15:00 08/14/18 15:00 08/14/18 15:00 - Medications Medications: Current Medications Albuterol/Ipratropium (Duoneb 3 Mg/0.5 Mg (3 Ml) Ud) 3 ml INH RQ6 [facility] Last Admin: 08/14/18 13:41 Dose: 3 ml Alprazolam (Xanax) 1 mg PO DAILY PRN PRN Reason: Anxiety Last Admin: 08/11/18 01:33 Dose: 1 mg Aspirin (Ecotrin) 81 mg PO DAILY [facility] Last Admin: 08/14/18 10:00 Dose: 81 mg Benzocaine/Menthol (Cepacol Sore Throat) 1 osvaldo MT QID [facility] Last Admin: 08/14/18 17:58 Dose: 1 osvaldo Cyanocobalamin (Vitamin B12 1000 Mcg Tab) 2,000 mcg PO DAILY [facility] Last Admin: 08/14/18 10:01 Dose: 2,000 mcg Dextrose (Dextrose 50% Inj) 0 ml IV STAT PRN; Protocol PRN Reason: Hypoglycemia Protocol Dextrose (Glutose 15) 0 gm PO ONCE PRN; Protocol PRN Reason: Hypoglycemia Protocol Enoxaparin Sodium (Lovenox) 40 mg SC DAILY [facility] Last Admin: 08/14/18 10:05 Dose: 40 mg Ergocalciferol (Drisdol 50,000 Intl Units Cap) 1 cap PO QWK [facility] Last Admin: 08/11/18 10:17 Dose: 1 cap Fenofibrate (Tricor) 48 mg PO DAILY [facility] Last Admin: 08/14/18 10:01 Dose: 48 mg Fluticasone/Vilanterol (Breo Ellipta 100-25 Mcg Inh) 1 puff INH RQD [facility] Last Admin: 08/14/18 10:15 Dose: Not Given Gabapentin (Neurontin) 800 mg PO TID PRN PRN Reason: to give with dilaudid Last Admin: 08/14/18 05:31 Dose: 800 mg Glucagon (Glucagen Diagnostic Kit) 0 mg IM STAT PRN; Protocol PRN Reason: Hypoglycemia Protocol Guaifenesin (Robitussin) 200 mg PO Q4H PRN PRN Reason: Cough and congestion Last Admin: 08/14/18 10:05 Dose: 200 mg Insulin Aspart (Novolog) 0 unit SC [facility]; Protocol Last Admin: 08/14/18 17:30 Dose: 12 units Insulin Detemir (Levemir) 35 unit SC [facility] Last Admin: 08/13/18 21:32 Dose: 35 units Lactobacillus Acidophilus (Bacid Acidophilus) 1 cap PO BID [facility] Last Admin: 08/14/18 17:52 Dose: 1 cap Levothyroxine Sodium (Synthroid) 100 mcg PO DAILY@0630 [facility] Last Admin: 08/14/18 05:31 Dose: 100 mcg Lidocaine (Lidoderm) 1 ea TD DAILY PRN PRN Reason: pain Methylprednisolone (Solu-Medrol) 30 mg IVP Q8H [facility] Last Admin: 08/14/18 17:59 Dose: 30 mg Montelukast Sodium (Singulair) 10 mg PO HS [facility] Last Admin: 08/13/18 21:34 Dose: 10 mg Moxifloxacin HCl (Avelox) 400 mg PO DAILY [facility]; Protocol Last Admin: 08/14/18 17:59 Dose: 400 mg [id number]-7-[id number] Ethyl Esters (Lovaza) 1 gm PO DAILY [facility] Last Admin: 08/14/18 10:00 Dose: 1 gm Pantoprazole Sodium (Protonix Ec Tab) 40 mg PO DAILY [facility] Last Admin: 08/14/18 10:00 Dose: 40 mg Repaglinide (Prandin) 1 mg PO TID [facility] Last Admin: 08/14/18 17:52 Dose: 1 mg Rosuvastatin Calcium (Crestor) 20 mg PO HS [facility] Last Admin: 08/13/18 21:34 Dose: 20 mg Sucralfate (Carafate Tab) 1 gm PO QID [facility] Last Admin: 08/14/18 17:52 Dose: 1 gm - Labs Labs: 08/14/18 06:44 08/14/18 06:44 PT 13.0 SECONDS (9.7-12.2) H 08/10/18 07:26 INR 1.2 08/10/18 07:26 APTT 26 SECONDS (21-34) 08/10/18 07:26 - Constitutional Appears: No Acute Distress - Head Exam Head Exam: ATRAUMATIC, NORMOCEPHALIC - Eye Exam Eye Exam: EOMI, Normal appearance - ENT Exam ENT Exam: Mucous Membranes Moist - Neck Exam Neck Exam: Normal Inspection - Respiratory Exam Respiratory Exam: Decreased Breath Sounds. absent: Wheezes, Respiratory Distress - Cardiovascular Exam Cardiovascular Exam: RRR, +S1, +S2 - GI/Abdominal Exam GI & Abdominal Exam: Soft. absent: Tenderness - Rectal Exam Rectal Exam: Deferred - Extremities Exam Extremities Exam: absent: Calf Tenderness, Pedal Edema - Back Exam Back Exam: absent: CVA tenderness (L), CVA tenderness (R) - Neurological Exam Neurological Exam: Alert, Awake, CN II-XII Intact, Oriented x3 - Psychiatric Exam Psychiatric exam: Normal Mood - Skin Skin Exam: absent: Rash Assessment and Plan (1) COPD exacerbation Status: Acute (2) Diabetes Status: Acute (3) Breast cancer Status: Acute (4) Hyperlipidemia Status: Acute (5) Hypothyroid Status: Acute (6) HTN (hypertension) Status: Acute - Assessment and Plan (Free Text) Assessment: RESP STATUS SLOW IMPROVEMENT., CONT STEROID TAPER, ELEVATED GLUCOSE NOTED. CONT NEB BD., MONITOR O2 SAT ON ROOM AIR., CXR REVIEWED. AFEBRILE ON AB. DISCUSSED WITH STAFF AT LENGTH.
--- NOTE | 2018-08-14 21:43 | CP.PCM.PN ---
Subjective - Date & Time of Evaluation Date of Evaluation: 08/14/18 Time of Evaluation: 09:50 - Subjective Subjective: clinically same Objective - Vital Signs/Intake and Output Vital Signs (last 24 hours): Temp Pulse Resp BP Pulse Ox 98.1 F 104 H 20 121/77 96 08/14/18 15:00 08/14/18 15:00 08/14/18 15:00 08/14/18 15:00 08/14/18 15:00 - Medications Medications: Current Medications Albuterol/Ipratropium (Duoneb 3 Mg/0.5 Mg (3 Ml) Ud) 3 ml INH RQ6 [facility] Last Admin: 08/14/18 19:45 Dose: 3 ml Alprazolam (Xanax) 1 mg PO DAILY PRN PRN Reason: Anxiety Last Admin: 08/11/18 01:33 Dose: 1 mg Aspirin (Ecotrin) 81 mg PO DAILY [facility] Last Admin: 08/14/18 10:00 Dose: 81 mg Benzocaine/Menthol (Cepacol Sore Throat) 1 osvaldo MT QID [facility] Last Admin: 08/14/18 17:58 Dose: 1 osvaldo Cyanocobalamin (Vitamin B12 1000 Mcg Tab) 2,000 mcg PO DAILY [facility] Last Admin: 08/14/18 10:01 Dose: 2,000 mcg Dextrose (Dextrose 50% Inj) 0 ml IV STAT PRN; Protocol PRN Reason: Hypoglycemia Protocol Dextrose (Glutose 15) 0 gm PO ONCE PRN; Protocol PRN Reason: Hypoglycemia Protocol Enoxaparin Sodium (Lovenox) 40 mg SC DAILY [facility] Last Admin: 08/14/18 10:05 Dose: 40 mg Ergocalciferol (Drisdol 50,000 Intl Units Cap) 1 cap PO QWK [facility] Last Admin: 08/11/18 10:17 Dose: 1 cap Fenofibrate (Tricor) 48 mg PO DAILY [facility] Last Admin: 08/14/18 10:01 Dose: 48 mg Fluticasone/Vilanterol (Breo Ellipta 100-25 Mcg Inh) 1 puff INH RQD [facility] Last Admin: 08/14/18 10:15 Dose: Not Given Gabapentin (Neurontin) 800 mg PO TID PRN PRN Reason: to give with dilaudid Last Admin: 08/14/18 21:39 Dose: 800 mg Glucagon (Glucagen Diagnostic Kit) 0 mg IM STAT PRN; Protocol PRN Reason: Hypoglycemia Protocol Guaifenesin (Robitussin) 200 mg PO Q4H PRN PRN Reason: Cough and congestion Last Admin: 08/14/18 10:05 Dose: 200 mg Hydromorphone HCl (Dilaudid) 2 mg PO Q8 PRN PRN Reason: Pain, severe (8-10) Last Admin: 08/14/18 21:39 Dose: 2 mg Insulin Aspart (Novolog) 0 unit SC [facility]; Protocol Last Admin: 08/14/18 17:30 Dose: 12 units Insulin Detemir (Levemir) 35 unit SC [facility] Last Admin: 08/13/18 21:32 Dose: 35 units Lactobacillus Acidophilus (Bacid Acidophilus) 1 cap PO BID [facility] Last Admin: 08/14/18 17:52 Dose: 1 cap Levothyroxine Sodium (Synthroid) 100 mcg PO DAILY@0630 [facility] Last Admin: 08/14/18 05:31 Dose: 100 mcg Lidocaine (Lidoderm) 1 ea TD DAILY PRN PRN Reason: pain Methylprednisolone (Solu-Medrol) 20 mg IVP Q12H [facility] Last Admin: 08/14/18 20:00 Dose: Not Given Montelukast Sodium (Singulair) 10 mg PO [facility] Last Admin: 08/13/18 21:34 Dose: 10 mg Moxifloxacin HCl (Avelox) 400 mg PO DAILY [facility]; Protocol Last Admin: 08/14/18 17:59 Dose: 400 mg Dxvuf-2-[id number] Ethyl Esters (Lovaza) 1 gm PO DAILY [facility] Last Admin: 08/14/18 10:00 Dose: 1 gm Pantoprazole Sodium (Protonix Ec Tab) 40 mg PO DAILY [facility] Last Admin: 08/14/18 10:00 Dose: 40 mg Repaglinide (Prandin) 1 mg PO TID [facility] Last Admin: 08/14/18 17:52 Dose: 1 mg Rosuvastatin Calcium (Crestor) 20 mg PO HS [facility] Last Admin: 08/13/18 21:34 Dose: 20 mg Sucralfate (Carafate Tab) 1 gm PO QID [facility] Last Admin: 08/14/18 17:52 Dose: 1 gm - Labs Labs: 08/14/18 06:44 08/14/18 06:44 PT 13.0 SECONDS (9.7-12.2) H 08/10/18 07:26 INR 1.2 08/10/18 07:26 APTT 26 SECONDS (21-34) 08/10/18 07:26 - Constitutional Appears: Well - Head Exam Head Exam: ATRAUMATIC, NORMAL INSPECTION, NORMOCEPHALIC - Eye Exam Eye Exam: EOMI, Normal appearance, PERRL Pupil Exam: NORMAL ACCOMODATION, PERRL - ENT Exam ENT Exam: Mucous Membranes Moist, Normal Exam - Neck Exam Neck Exam: Full ROM, Normal Inspection. absent: Lymphadenopathy - Respiratory Exam Respiratory Exam: Decreased Breath Sounds - Cardiovascular Exam Cardiovascular Exam: REGULAR RHYTHM, +S1, +S2 - GI/Abdominal Exam GI & Abdominal Exam: Soft, Diminished Bowel Sounds - Rectal Exam Rectal Exam: Deferred
[2018-08-14] MEDS: Insulin Detemir 100 units/ml Vial (Levemir) SC SCH (21:49)
[2018-08-15] MEDS: Albuterol-Ipratrop 3 mg / 0.5 (3 ml) UD INH SCH ×3 (01:12→13:25)
[2018-08-15] MEDS: Levothyroxine 100 MCG TAB PO SCH (05:34)
[2018-08-15] MEDS: (Novolog) Insulin Aspart, Recombinant 100 u/ml 10 ml vial SC SCH ×2 (08:30→12:43)
[2018-08-15] MEDS: MethylPREDNISolone 40 mg Vial IVP SCH (08:30)
[2018-08-15] MEDS: Fluticasone-Vilanterol 100/25mcg Diskus INH SCH (09:03)
[2018-08-15] MEDS: Omega-3-Acid Ethyl Esters 1 GM Cap PO SCH (10:03)
[2018-08-15] MEDS: Pantoprazole 40 mg EC Tab PO SCH (10:03)
[2018-08-15] MEDS: Lactobacillus Acidophilus 500 MU Cap PO SCH (10:04)
[2018-08-15] MEDS: Enoxaparin 40 mg Syringe SC SCH (10:05)
[2018-08-15] MEDS: Benzocaine/Menthol (Cepacol) Lozenge MT SCH ×2 (10:05→13:28)
--- NOTE | 2018-08-15 15:00 | CP.PCM.PN ---
Subjective - Date & Time of Evaluation Date of Evaluation: 08/15/18 Time of Evaluation: 09:15 - Subjective Subjective: Medicine progress note: Dr. Sarahi Reyes's service Patient was seen and examined at bedside, while resting in bed comfortably. Yordy mcnair reports that she is doing well with but with very mild non-productive cough. Patient denies any symptoms of fever, chills, nausea, vomiting, chest pain, palpitations, shortness of breath. Patient is with improve symptoms. Objective - Vital Signs/Intake and Output Vital Signs (last 24 hours): Temp Pulse Resp BP Pulse Ox 98.5 F 90 18 138/74 96 08/15/18 07:00 08/15/18 09:20 08/15/18 07:00 08/15/18 07:00 08/15/18 07:00 Intake and Output: 08/15/18 08/15/18 06:59 18:59 Intake Total 480 Output Total 700 Balance -220 - Medications Medications: Current Medications Albuterol/Ipratropium (Duoneb 3 Mg/0.5 Mg (3 Ml) Ud) 3 ml INH RQ6 [facility] Last Admin: 08/15/18 09:03 Dose: 3 ml Alprazolam (Xanax) 1 mg PO DAILY PRN PRN Reason: Anxiety Last Admin: 08/11/18 01:33 Dose: 1 mg Aspirin (Ecotrin) 81 mg PO DAILY [facility] Last Admin: 08/15/18 10:03 Dose: 81 mg Benzocaine/Menthol (Cepacol Sore Throat) 1 osvaldo MT QID [facility] Last Admin: 08/15/18 13:28 Dose: 1 osvaldo Cyanocobalamin (Vitamin B12 1000 Mcg Tab) 2,000 mcg PO DAILY [facility] Last Admin: 08/15/18 10:04 Dose: 2,000 mcg Dextrose (Dextrose 50% Inj) 0 ml IV STAT PRN; Protocol PRN Reason: Hypoglycemia Protocol Dextrose (Glutose 15) 0 gm PO ONCE PRN; Protocol PRN Reason: Hypoglycemia Protocol Enoxaparin Sodium (Lovenox) 40 mg SC DAILY [facility] Last Admin: 08/15/18 10:05 Dose: 40 mg Ergocalciferol (Drisdol 50,000 Intl Units Cap) 1 cap PO QWK [facility] Last Admin: 08/11/18 10:17 Dose: 1 cap Fenofibrate (Tricor) 48 mg PO DAILY [facility] Last Admin: 08/15/18 10:04 Dose: 48 mg Fluticasone/Vilanterol (Breo Ellipta 100-25 Mcg Inh) 1 puff INH RQD [facility] Last Admin: 08/15/18 09:03 Dose: 1 puff Gabapentin (Neurontin) 800 mg PO TID PRN PRN Reason: to give with dilaudid Last Admin: 08/15/18 05:36 Dose: 800 mg Glucagon (Glucagen Diagnostic Kit) 0 mg IM STAT PRN; Protocol PRN Reason: Hypoglycemia Protocol Guaifenesin (Robitussin) 200 mg PO Q4H PRN PRN Reason: Cough and congestion Last Admin: 08/14/18 10:05 Dose: 200 mg Hydromorphone HCl (Dilaudid) 2 mg PO Q8 PRN PRN Reason: Pain, severe (8-10) Last Admin: 08/15/18 05:35 Dose: 2 mg Insulin Aspart (Novolog) 0 unit SC ACHS [facility]; Protocol Last Admin: 08/15/18 12:43 Dose: 8 units Insulin Detemir (Levemir) 35 unit SC [facility] Last Admin: 08/14/18 21:49 Dose: 35 units Lactobacillus Acidophilus (Bacid Acidophilus) 1 cap PO BID [facility] Last Admin: 08/15/18 10:04 Dose: 1 cap Levothyroxine Sodium (Synthroid) 100 mcg PO DAILY@0630 [facility] Last Admin: 08/15/18 05:34 Dose: 100 mcg Lidocaine (Lidoderm) 1 ea TD DAILY PRN PRN Reason: pain Methylprednisolone (Solu-Medrol) 20 mg IVP Q12H [facility] Last Admin: 08/15/18 08:30 Dose: 20 mg Montelukast Sodium (Singulair) 10 mg PO HS [facility] Last Admin: 08/14/18 22:15 Dose: 10 mg Moxifloxacin HCl (Avelox) 400 mg PO DAILY [facility]; Protocol Last Admin: 08/15/18 10:03 Dose: 400 mg Gxxsi-9-Jjhf Ethyl Esters (Lovaza) 1 gm PO DAILY [facility] Last Admin: 08/15/18 10:03 Dose: 1 gm Pantoprazole Sodium (Protonix Ec Tab) 40 mg PO DAILY [facility] Last Admin: 08/15/18 10:03 Dose: 40 mg Repaglinide (Prandin) 1 mg PO TID [facility] 234 [facility] Last Admin: 08/15/18 13:28 Dose: 1 mg Rosuvastatin Calcium (Crestor) 20 mg PO HS [facility] 234 [facility]S [facility] Last Admin: 08/14/18 22:15 Dose: 20 mg Sucralfate (Carafate Tab) 1 gm PO QID [facility] 234 [facility] Last Admin: 08/15/18 13:27 Dose: 1 gm - Labs Labs: 08/14/18 06:44 08/14/18 06:44 PT 13.0 SECONDS (9.7-12.2) H 08/10/18 07:26 INR 1.2 08/10/18 07:26 APTT 26 SECONDS (21-34) 08/10/18 07:26 - Constitutional Appears: No Acute Distress - Head Exam Head Exam: ATRAUMATIC, NORMAL INSPECTION - Eye Exam Eye Exam: EOMI, Normal appearance - ENT Exam ENT Exam: Mucous Membranes Moist - Respiratory Exam Respiratory Exam: Clear to Ausculation Bilateral, NORMAL BREATHING PATTERN. absent: Chest Wall Tenderness, Decreased Breath Sounds, Prolonged Expiratory Phase, Rhonchi, Wheezes - Cardiovascular Exam Cardiovascular Exam: REGULAR RHYTHM, +S1, +S2 - GI/Abdominal Exam GI & Abdominal Exam: Soft, Normal Bowel Sounds. absent: Distended, Firm, Guarding, Rigid, Tenderness - Extremities Exam Extremities Exam: Normal Inspection. absent: Calf Tenderness - Neurological Exam Neurological Exam: Alert, Awake, Oriented x3 - Psychiatric Exam Psychiatric exam: Normal Affect - Skin Skin Exam: Normal Color Assessment and Plan (1) COPD exacerbation Assessment & Plan: Consultation: Helmet Hat Sweatband Puncher, Dr. Buchanan * Management as per recommendation In combination of COPD and asthma exacerbation -BiPap at night -Solumedrol taper 30mg IV Q8H currently -Duoneb Q6h COUNTS INCLUDE 234 BEDS AT [facility], albuterol q4h -Azithromycin 500mg IV daily discontinued - Avelox 400mg daily started 08/14/18 -Singulair 10mg daily -Cepacol Sore throat (1 QID) -Breo-elipta 1 puff INH daily -Robitussin 200mg PO Q4H Chest X-ray: No active disease Chest CT: No active pathology DM; uncontrolled -increasing RISS/nighttime insulin 2/2 to steroid use -patient will take same insulin as outpatient with increased meal time dosing as will be d/c on steroids Status: Acute (2) Anxiety Assessment & Plan: Xanax 1mg daily at night Status: Acute (3) Neuropathy Assessment & Plan: Gabapentin 800mg PO TID Status: Acute (4) Hypothyroid Assessment & Plan: Synthroid 100mcg PO daily Status: Acute (5) Hyperlipidemia Assessment & Plan: Tricor 48mg PO daily Crestor 20mg PO daily Status: Acute (6) Diabetes Assessment & Plan: -RISS high -35 Units Levemir nighttime -replanigide Status: Acute (7) Prophylactic measure Assessment & Plan: -GI prophyalxis not indicated as patient eating -Lovenox 40mg SC daily Disposition: Please discharge patient home as per Dr. Jenna Reyes Please resume all your home medications Please take Avelox 500mg PO daily, please take 1 tablet once daily for 5 days. Please take with Yogurt and probiotics. Please take prednisone 40mg PO daily for 5 days. Please take in the morning time Please take tessalon perles 100mg PO TID PRN Please follow with your primary care physician or Dr. Ej Reyes in 1-3 days Please obtain insurance sales professional referral from your PCP or follow up with Dr. Buchanan Please use your inhaler as needed Please try to avoid any exacerbating factors for your asthma Please take care All plans and management discussed with Dr. Jenna Reyes Status: Acute
--- NOTE | 2018-08-15 15:14 | CP.PCM.PN ---
Subjective - Date & Time of Evaluation Date of Evaluation: 08/15/18 Time of Evaluation: 15:12 - Subjective Subjective: PT ALERT, FEELS BETTER., LESS COUGH. ROS; OTHERWISE NEG. Objective - Vital Signs/Intake and Output Vital Signs (last 24 hours): Temp Pulse Resp BP Pulse Ox 98.5 F 90 18 138/74 96 08/15/18 07:00 08/15/18 09:20 08/15/18 07:00 08/15/18 07:00 08/15/18 07:00 Intake and Output: 08/15/18 08/15/18 06:59 18:59 Intake Total 480 Output Total 700 Balance -220 - Medications Medications: Current Medications Albuterol/Ipratropium (Duoneb 3 Mg/0.5 Mg (3 Ml) Ud) 3 ml INH RQ6 [facility] Last Admin: 08/15/18 13:25 Dose: 3 ml Alprazolam (Xanax) 1 mg PO DAILY PRN PRN Reason: Anxiety Last Admin: 08/11/18 01:33 Dose: 1 mg Aspirin (Ecotrin) 81 mg PO DAILY [facility] Last Admin: 08/15/18 10:03 Dose: 81 mg Benzocaine/Menthol (Cepacol Sore Throat) 1 osvaldo MT QID [facility] Last Admin: 08/15/18 13:28 Dose: 1 osvaldo Cyanocobalamin (Vitamin B12 1000 Mcg Tab) 2,000 mcg PO DAILY [facility] Last Admin: 08/15/18 10:04 Dose: 2,000 mcg Dextrose (Dextrose 50% Inj) 0 ml IV STAT PRN; Protocol PRN Reason: Hypoglycemia Protocol Dextrose (Glutose 15) 0 gm PO ONCE PRN; Protocol PRN Reason: Hypoglycemia Protocol Enoxaparin Sodium (Lovenox) 40 mg SC DAILY [facility] Last Admin: 08/15/18 10:05 Dose: 40 mg Ergocalciferol (Drisdol 50,000 Intl Units Cap) 1 cap PO QWK [facility] Last Admin: 08/11/18 10:17 Dose: 1 cap Fenofibrate (Tricor) 48 mg PO DAILY [facility] Last Admin: 08/15/18 10:04 Dose: 48 mg Fluticasone/Vilanterol (Breo Ellipta 100-25 Mcg Inh) 1 puff INH RQD [facility] Last Admin: 08/15/18 09:03 Dose: 1 puff Gabapentin (Neurontin) 800 mg PO TID PRN PRN Reason: to give with dilaudid Last Admin: 08/15/18 05:36 Dose: 800 mg Glucagon (Glucagen Diagnostic Kit) 0 mg IM STAT PRN; Protocol PRN Reason: Hypoglycemia Protocol Guaifenesin (Robitussin) 200 mg PO Q4H PRN PRN Reason: Cough and congestion Last Admin: 08/14/18 10:05 Dose: 200 mg Hydromorphone HCl (Dilaudid) 2 mg PO Q8 PRN PRN Reason: Pain, severe (8-10) Last Admin: 08/15/18 05:35 Dose: 2 mg Insulin Aspart (Novolog) 0 unit SC [facility]; Protocol Last Admin: 08/15/18 12:43 Dose: 8 units Insulin Detemir (Levemir) 35 unit SC [facility] Last Admin: 08/14/18 21:49 Dose: 35 units Lactobacillus Acidophilus (Bacid Acidophilus) 1 cap PO BID [facility] Last Admin: 08/15/18 10:04 Dose: 1 cap Levothyroxine Sodium (Synthroid) 100 mcg PO DAILY@0630 [facility] Last Admin: 08/15/18 05:34 Dose: 100 mcg Lidocaine (Lidoderm) 1 ea TD DAILY PRN PRN Reason: pain Methylprednisolone (Solu-Medrol) 20 mg IVP Q12H [facility] Last Admin: 08/15/18 08:30 Dose: 20 mg Montelukast Sodium (Singulair) 10 mg PO [facility] Last Admin: 08/14/18 22:15 Dose: 10 mg Moxifloxacin HCl (Avelox) 400 mg PO DAILY [facility]; Protocol Last Admin: 08/15/18 10:03 Dose: 400 mg Kzcxy-7-[id number] Ethyl Esters (Lovaza) 1 gm PO DAILY [facility] Last Admin: 08/15/18 10:03 Dose: 1 gm Pantoprazole Sodium (Protonix Ec Tab) 40 mg PO DAILY [facility] Last Admin: 08/15/18 10:03 Dose: 40 mg Repaglinide (Prandin) 1 mg PO TID [facility] Last Admin: 08/15/18 13:28 Dose: 1 mg Rosuvastatin Calcium (Crestor) 20 mg PO [facility] Last Admin: 08/14/18 22:15 Dose: 20 mg Sucralfate (Carafate Tab) 1 gm PO QID [facility] Last Admin: 08/15/18 13:27 Dose: 1 gm - Labs Labs: 08/14/18 06:44 08/14/18 06:44 PT 13.0 SECONDS (9.7-12.2) H 08/10/18 07:26 INR 1.2 08/10/18 07:26 APTT 26 SECONDS (21-34) 08/10/18 07:26 - Constitutional Appears: No Acute Distress - Head Exam Head Exam: ATRAUMATIC, NORMOCEPHALIC - Eye Exam Eye Exam: EOMI, Normal appearance - ENT Exam ENT Exam: Mucous Membranes Moist - Neck Exam Neck Exam: Normal Inspection - Respiratory Exam Respiratory Exam: Decreased Breath Sounds. absent: Wheezes, Respiratory Distress - Cardiovascular Exam Cardiovascular Exam: RRR, +S1, +S2 - GI/Abdominal Exam GI & Abdominal Exam: Soft - Rectal Exam Rectal Exam: Deferred - Extremities Exam Extremities Exam: absent: Calf Tenderness, Pedal Edema - Back Exam Back Exam: absent: CVA tenderness (L), CVA tenderness (R) - Neurological Exam Neurological Exam: Alert, Awake, CN II-XII Intact, Oriented x3 - Psychiatric Exam Psychiatric exam: Normal Mood - Skin Skin Exam: absent: Rash Assessment and Plan (1) COPD exacerbation Status: Acute (2) Diabetes Status: Acute (3) Breast cancer Status: Acute (4) Hyperlipidemia Status: Acute (5) Hypothyroid Status: Acute (6) HTN (hypertension) Status: Acute - Assessment and Plan (Free Text) Assessment: RESP STATUS IMPROVING, ON STEROID TAPER, TO CHANGE PO PRED. CONT NEB BD., CXR REVIEWED. CHECK O2 SAT ON ROOM AIR. DISCUSSED WITH STAFF.
[2018-08-15 15:48] VITALS: BP 126/85; PULSE 100; RESP 20; TEMP 98.2; O2SAT 98
--- NOTE | 2018-08-21 14:10 | PQF ---
PROVIDER RESPONSE TEXT: Bacterial Pneumonia along with asthma exacerbation. REVIEWER QUERY TEXT: Pneumonia Specificity Pneumonia is documented in the Medical Record. Please specify the type of pneumonia and the causative organism (includes probable or suspected) Such as: Type: -- Aspiration pneumonia (please also specify the aspirate) - [place] (please specify cause) - Please indicate if the aspiration is postprocedure -- Bacterial (please document suspected or probable organism) -- Bronchopneumonia (please document suspected or probable organism) -- Interstitial pneumonia -- Organizing pneumonia / BOOP -- Pneumonia with influenza, yessy flu, or H1N1 flu -- RSV -- Tuberculosis, pulmonary -- Viral -- Other, please specify The patient's Clinical Indicators include: ASTHMA/BRONCHITIS/COPD==EXACERBATION 'PLEASE CLARIFY AND DOCUMENT THE 'PNEUMONIA' diagnosis. Query created by: Amanda Bassett on 08/21/2018 9:12 AM Electronically signed by: Jenna HALE 08/21/2018 2:07 PM
== END 2018-08-15 16:57 | disposition home or self-care (01) | DRG 202 ==
LOC: C.ER 16:46 → C.9E 23:28 → C.6T 08-10 15:01
PROVIDERS: ADMIT Internal Medicine Nephrology; ATTEND Internal Medicine Nephrology
PROC: 5A09557 Assistance with Respiratory Ventilation, Greater than 96 Consecutive Hours, Continuous Positive Airway Pressure (ICD-10-PCS; principal; 2018-08-09)
DX: J45.901 Unspecified asthma with (acute) exacerbation (principal); J15.9 Unspecified bacterial pneumonia; J44.0 Chronic obstructive pulmonary disease with (acute) lower respiratory infection; J44.1 Chronic obstructive pulmonary disease with (acute) exacerbation; J20.9 Acute bronchitis, unspecified; Z87.891 Personal history of nicotine dependence; I10 Essential (primary) hypertension; F41.9 Anxiety disorder, unspecified; E78.5 Hyperlipidemia, unspecified; E11.65 Type 2 diabetes mellitus with hyperglycemia; E03.9 Hypothyroidism, unspecified; Z92.21 Personal history of antineoplastic chemotherapy; Z79.890 Hormone replacement therapy; G62.9 Polyneuropathy, unspecified; Z85.3 Personal history of malignant neoplasm of breast; Z79.4 Long term (current) use of insulin

== ENCOUNTER 2018-11-11 08:59 | Day surgery (SDC) | payer MEDICARE ==
[2018-11-11] MEDS ORDERED: DiphenhydrAMINE 50 mg/ml Inj IVP ONE (10:22)
--- NOTE | 2018-11-11 10:22 | CP.SDSHP ---
Same Day Surgery H & P - History Proposed Procedure: egd Pre-Op Diagnosis: SEE NOTES - Previous Medical/Surgical History Pulmonary: Asthma Endocrine/Metabolic: Thyroid Disease, Diabetes Neuro: Other Misc: Other Pain: 4.Moderate Pain - Allergies Allergies: Allergies cefazolin Allergy (Mild, Verified 08/09/18 16:54) ITCHING ibuprofen Allergy (Mild, Verified 08/09/18 16:54) ITCHING pineapple Allergy (Mild, Verified 08/09/18 16:54) URTICARIA zolpidem [From Ambien] Allergy (Verified 08/09/18 16:54) DIZZINESS 'RELAXER MEDS" Allergy (Uncoded 08/09/18 16:54) ITCHING - Physical Exam General Appearance: N Vital Signs: Vital Signs 11/11/18 09:33 Temperature 98 F Pulse Rate 78 Respiratory 20 Rate Blood Pressure 133/79 O2 Sat by Pulse 100 Oximetry Mental Status: Alert & Oriented x3 Neuro: WNL Heart: Other Lungs: Other GI: Other - {Optional Preform as Required} Breast: WNL Abdomen: Other Rectal: Other Integument: WNL : WNL Ortho: Other ENT: WNL - Impression Pt. Evaluated Today:Candidate for Anesthesia & Procedure: Yes - Date & Time Time: 10:22 Short Stay Discharge - Short Stay Discharge Admitting Diagnosis/Reason for Visit: DYSPEPSIA Disposition: HOME/ ROUTINE
[2018-11-11] MEDS ORDERED: Lactated Ringer's 1,000 ML IV ONE (10:26)
[2018-11-11] MEDS ORDERED: Belladonna-Phenobarbital PO ONE (11:00)
[2018-11-11 12:18] VITALS: TEMP 97
[2018-11-11 12:22] VITALS: RESP 18
[2018-11-11 12:41] VITALS: BP 134/63; PULSE 72; O2SAT 100
== END 2018-11-11 12:30 | disposition home or self-care (01) ==
LOC: C.ENDO 08:59
PROVIDERS: ATTEND Specialist
DX: K30 Functional dyspepsia (principal); K29.70 Gastritis, unspecified, without bleeding; K44.9 Diaphragmatic hernia without obstruction or gangrene; B37.9 Candidiasis, unspecified; J45.909 Unspecified asthma, uncomplicated
CPT/HCPCS: 43239; 82948; 88305; 88342; J1200; J7120